=== PATIENT | female | born 1975 | race Caucasian/White ===

== ENCOUNTER 2021-06-23 19:01 | Emergency (ER) | payer MEDICAID, SELFPAY ==
--- NOTE | ~2021-06-23 | CT_ITS ---
EXAMINATION: CT ABDOMEN AND PELVIS WITHOUT IV CONTRAST CLINICAL INFORMATION: Diffuse abdominal pain, nausea. History of gastric bypass COMPARISON: Upper GI series 05/26/2017 TECHNIQUE: Multidetector volumetric imaging was performed from the superior aspect of the liver through the pubic symphysis. Sagittal and coronal reformatted images were obtained on the technologist's workstation. This CT examination was performed using dose optimization techniques as appropriate, variously including the following: *Automated exposure control *Adjustment of mA and/or kV according to patient size (this includes techniques or standardized protocols for targeted exams where dose is matched to indication/reason for exam; i.e. extremities or head) *Use of iterative reconstruction technique DLP: 892 mGy-cm FINDINGS: LUNG BASES: The visualized lung bases are unremarkable. LIVER, GALLBLADDER, AND BILIARY TREE: The liver is normal in size, shape, and attenuation. No focal hepatic lesion or biliary ductal dilatation is present. The gallbladder is unremarkable with no evidence of radiopaque gallstones, gallbladder wall thickening, or obvious pericholecystic inflammatory changes. PANCREAS: Unremarkable. SPLEEN: Unremarkable. ADRENAL GLANDS: Unremarkable. KIDNEYS AND URETERS: The kidneys are normal in size, shape, and attenuation. No hydronephrosis, hydroureter, or calculi seen. No perinephric stranding. BLADDER: Unremarkable. GASTROINTESTINAL TRACT: Oral contrast was administered. There is evidence of prior Clare-en-Y gastric bypass. Oral contrast is seen within the Clare limb and into the small bowel beyond the jejunojejunostomy without evidence of obstruction. Normal appendix. No evidence of colitis or diverticulitis. ABDOMINAL WALL: No significant hernia is appreciated. LYMPH NODES: Normal. VASCULAR: Normal caliber aorta. PELVIC VISCERA: The uterus and adnexa are unremarkable. OSSEOUS STRUCTURES: Vacuum disc phenomenon and degenerative disc disease at L4-5 and L5-S1. CT/CT abdomen pelvis wo con IMPRESSION: Clare-en-Y gastric bypass. No evidence of obstruction. No CT findings to explain abdominal pain.
[2021-06-23 19:10] VITALS: BP 118/75; PULSE 72; RESP 16; TEMP 36.2; O2SAT 98; BMI 37.5
[2021-06-23 21:05] LABS: Appearance Urine HAZY; Color Urine OTHER; Glucose Urine UA NEG (NEG); Leukocyte Esterase Urine 2+ (NEG); Nitrite Urine POS (NEG); Specific Gravity - Urine 1.025 (1.005-1.025); UACC Culture Trigger YES; Urine Blood 1+ (NEG); Urine Ketones 5 MG/DL (NEG); Urine Protein 1+ MG/DL (NEG-TRACE)
--- NOTE | 2021-06-23 21:06 | ED_ITS ---
HPI - Abdominal Pain General Chief Complaint: Abdominal Pain Stated Complaint: Abd Pain Time Seen by Provider: 06/23/21 20:59 Source: patient Mode of arrival: ambulatory Limitations: no limitations History of Present Illness HPI narrative: 45-year-old female here with complaints of left-sided abdominal pain and lower abdominal pain since this morning with some nausea but no vomiting. No diarrhea or constipation. No urinary symptoms. History of gastric bypass [address] Plata. Related Data Previous Rx's Medication Instructions Recorded nitrofurantoin 100 mg PO Q12H 5 Days #10 cap 06/24/21 monohydrate/macrocrystals 100 mg capsule (Macrobid) phenazopyridine 100 mg tablet 200 mg PO TID PRN #10 tab 06/24/21 (Pyridium) Allergies Allergy/AdvReac Type Severity Reaction Status Date / Time ENVIROMENTAL Allergy Intermediate HAYFEVER,NASAL Uncoded 07/09/20 15:25 CONGESTION Pt states no known allergy to Allergy Unknown Uncoded 05/17/18 00:00 Review of Systems Review of Systems Yes all other systems are reviewed and are negative Constitutional: Reports no additional constitutional complaints, Denies body ache(s), Denies chills, Denies fever(s), Denies headache(s) and Denies weakness Eyes: Reports no additional eye complaints and Denies change in vision Reports system reviewed and no additional complaints, except as documented, Denies dizziness, Denies headache(s), Denies nasal congestion, Denies nasal discharge and Denies neck pain Cardiovascular: Reports no additional cardiovascular complaints, Denies chest pain, Denies leg edema and Denies dyspnea Respiratory: Reports no additional respiratory complaints, Denies cough and Denies dyspnea Gastrointestinal: Reports no additional gastrointestinal complaints, Reports abdominal pain, Denies diarrhea, Reports nausea and Denies vomiting Genitourinary: Reports no additional female genitourinary complaints and Denies urinary incontinence Musculoskeletal: Reports no additional musculoskeletal complaints, Denies back pain, Denies arthralgias, Denies joint swelling, Denies neck pain, Denies numbness and Denies tingling Skin/Breast: Reports system reviewed and no additional complaints, except as docu and Denies rash Reports system reviewed and no additional complaints, except as documented, Denies Abnormal speech present, Denies dizziness, Denies headache(s), Denies num bness, Denies tingling and Denies weakness Physical Exam Vital Signs: Vital Signs: Last Vital Signs Temp 97.4 F 06/24/21 00:58 Pulse 68 06/24/21 00:58 Resp 16 06/24/21 00:58 BP 106/72 06/24/21 00:58 Pulse Ox 99 06/24/21 00:58 Body Mass Index 37.5 Const: General: cooperative, healthy appearing, comfortable and no acute distress Orientation/consciousness: patient oriented x3 Limitations: no limitations HENMT: Head: Yes normal to inspection Ears: hearing grossly normal bilaterally General nose exam: Normal external nose present Face and sinus: Yes normal facial exam Mouth: Normal oral and palatal mucosa present Throat: Yes posterior oropharynx normal Eyes: General: appearance normal, both eyes and all related structures Pupils: Equal, round and reactive pupils present Neck: Neck: Yes normal visual inspection Chest: Chest palpation & inspection: normal inspection of the chest Resp: Effort & Inspection: normal respiratory effort Auscultation: clear to auscultation bilaterally Cardio: Rate: regular rate Rhythm: regular rhythm Peripheral pulses: Peripheral pulses 2+ throughout GI: Inspection: Yes normal to inspection Palpation (GI): Soft to palpation and Tenderness to palpation present (GI) (Diffusely tender-no rebound or guarding) Auscultation: normal bowel sounds Back/Spine/Pelvis: Thoracic/Lumbar Spine: thoracic and lumbar spine normal to inspection Skin: General skin exam: no rashes or lesions noted Neuro: General: patient oriented x3, no focal motor deficits and normal sensation to monofilament Cranial nerves: Yes Equal, round and reactive pupils present Cognition (Neuro): normal cognition Speech: No Abnormal speech present Gait exam (Neuro): Normal gait present Motor exam (neuro): 5/5 motor strength present throughout Extrem: General: Yes normal to inspection Course Course Course Narrative: 45-year-old female with a past medical history of gastric bypass here with complaints of diffuse abdominal pain with nausea for 24 hours. On exam diffusely tender. Will check labs, UA. Will place PIV and give IV morphine and Zofran and reassessed 2199-labs show mild microcytic anemia unchanged from previous. WBC count 11.6. All other labs are all unremarkable. UA is consistent with a UTI. I spoke to the patient she is continuing to have pain after 1 dose of morphine. I will discuss with bariatrics if they believe that imaging is warranted. 2229-Spoke to Abbie SQUIRES from bariatrics. Recommended CT abdomen/pelvis with ORAL contrast. 0130-CT shows no acute finding. Patient is feeling improved. Tolerating p.o.. Will discharge home with course of antibiotics. Reviewed worrisome signs and symptoms of when to return to the emergency department. Comfortable discharge home. MDM - Abdominal Pain Medical Records Attestation: I reviewed the patient's medical records. Lab Data Attestation: I reviewed the patient's lab results. Result diagrams: 06/23/21 21:41 06/23/21 21:41 Labs: Lab Results 06/23/21 06/23/21 06/23/21 Range/Units 20:57 20:57 21:41 WBC 11.6 H (4.8-10.8) X10*3/uL RBC 3.85 L (4.20-5.50) X10*6/uL Hgb 9.5 L (12.0-16.0) g/dl Hct 30.5 L (37-47) % MCV 79.2 L (80-98) fL MCH 24.7 L (27.0-33.0) pg MCHC 31.1 (31.0-35.0) g/dl RDW 15.8 (11.0-16.0) % Plt Count 240 (160-400) X10*3/uL MPV 10.6 (9.4-12.3) fL Immature Gran % (Auto) 0.3 (0.0-0.4) % Neut % (Auto) 76.9 H (45-73) % Lymph % (Auto) 16.7 L (20-40) % Branch % (Auto) 5.2 (2-11) % Eos % (Auto) 0.6 (0-4) % Baso % (Auto) 0.3 (0-2) % Lymph # (Auto) 1.9 (1.2-4.9) X10*3/uL Branch # (Auto) 0.6 (0.1-1.2) X10*3/uL Eos # (Auto) 0.1 (0.0-0.4) X10*3/uL Baso # (Auto) 0.0 (0.0-0.2) X10*3/uL Abs Immat Gran (auto) 0.03 (0.00-0.03) X10*3/uL Absolute Neuts (auto) 8.9 H (2.0-8.3) X10*3/uL Absolute Nucleated RBC 0.000 (0.0-0.012) X10*3/uL Nucleated RBC % (auto) 0.0 (0.0-0.2) /100WBC Sodium (135-145) mmol/L Potassium (3.3-5.1) mmol/L Chloride (96-108) mmol/L Carbon Dioxide (22-29) mmol/L Anion Gap (12-20) BUN (9-16) mg/dL Creatinine (0.5-1.4) mg/dL Estim Creat Clear Calc Estimated GFR Random Glucose (60-115) mg/dL Calcium (8.4-10.2) mg/dL Total Bilirubin (0.0-1.0) mg/dL Direct Bilirubin (0.0-0.5) mg/dL AST (5-31) U/L ALT (0-31) U/L Alkaline Phosphatase (39-117) U/L Total Protein (6.5-8.0) g/dL Albumin (3.5-5.0) g/dL Lipase (8-78) U/L Urine Color OTHER Urine Appearance HAZY Urine pH 7.0 (5.0-8.0) Ur Specific [place] 1.025 (1.005-1.025) Urine Protein 1+ H (NEG-TRACE) MG/DL Urine Glucose (UA) NEG (NEG) MG/DL Urine Ketones 5 (NEG) MG/DL Urine Blood 1+ H (NEG) Urine Nitrite POS H (NEG) Ur Leukocyte Esterase 2+ H (NEG) Urine RBC 0-2 (0) /HPF Urine WBC 15-29 H (0-4) /HPF Ur Squamous Epith Cells 2+ /LPF Urine Bacteria 2+ /LPF Urine Test NEGATIVE (NEGATIVE) 06/23/21 Range/Units 21:41 WBC (4.8-10.8) X10*3/uL RBC (4.20-5.50) X10*6/uL Hgb (12.0-16.0) g/dl Hct (37-47) % MCV (80-98) fL MCH (27.0-33.0) pg MCHC (31.0-35.0) g/dl RDW (11.0-16.0) % Plt Count (160-400) X10*3/uL MPV (9.4-12.3) fL Immature Gran % (Auto) (0.0-0.4) % Neut % (Auto) (45-73) % Lymph % (Auto) (20-40) % Branch % (Auto) (2-11) % Eos % (Auto) (0-4) % Baso % (Auto) (0-2) % Lymph # (Auto) (1.2-4.9) X10*3/uL Branch # (Auto) (0.1-1.2) X10*3/uL Eos # (Auto) (0.0-0.4) X10*3/uL Baso # (Auto) (0.0-0.2) X10*3/uL Abs Immat Gran (auto) (0.00-0.03) X10*3/uL Absolute Neuts (auto) (2.0-8.3) X10*3/uL Absolute Nucleated RBC (0.0-0.012) X10*3/uL Nucleated RBC % (auto) (0.0-0.2) /100WBC Sodium 139 (135-145) mmol/L Potassium 4.1 (3.3-5.1) mmol/L Chloride 107 (96-108) mmol/L Carbon Dioxide 24 (22-29) mmol/L Anion Gap 12 (12-20) BUN 8 L (9-16) mg/dL Creatinine 0.79 (0.5-1.4) mg/dL Estim Creat Clear Calc 127.1 Estimated GFR > 60 Random Glucose 89 (60-115) mg/dL Calcium 9.1 (8.4-10.2) mg/dL Total Bilirubin 0.3 (0.0-1.0) mg/dL Direct Bilirubin < 0.2 (0.0-0.5) mg/dL AST 18 (5-31) U/L ALT 16 (0-31) U/L Alkaline Phosphatase 49 (39-117) U/L Total Protein 6.5 (6.5-8.0) g/dL Albumin 3.6 (3.5-5.0) g/dL Lipase 45 (8-78) U/L Urine Color Urine Appearance Urine pH (5.0-8.0) Ur Specific [place] (1.005-1.025) Urine Protein (NEG-TRACE) MG/DL Urine Glucose (UA) (NEG) MG/DL Urine Ketones (NEG) MG/DL Urine Blood (NEG) Urine Nitrite (NEG) Ur Leukocyte Esterase (NEG) Urine RBC (0) /HPF Urine WBC (0-4) /HPF Ur Squamous Epith Cells /LPF Urine Bacteria /LPF Urine Test (NEGATIVE) Imaging Data CT scan - abdomen: Attestation: I personally reviewed and interpreted this imaging study as follows: Radiologist's impression: FINDINGS: LUNG BASES: The visualized lung bases are unremarkable.? LIVER, GALLBLADDER, AND BILIARY TREE: The liver is normal in size, shape, and attenuation. No focal hepatic lesion or biliary ductal dilatation is present. The gallbladder is unremarkable with no evidence of radiopaque gallstones, gallbladder wall thickening, or obvious pericholecystic inflammatory changes.? PANCREAS: Unremarkable.? SPLEEN: Unremarkable.? ADRENAL GLANDS: Unremarkable.? KIDNEYS AND URETERS: The kidneys are normal in size, shape, and attenuation. No hydronephrosis, hydroureter, or calculi seen. No perinephric stranding. ? BLADDER: Unremarkable.? GASTROINTESTINAL TRACT: Oral contrast was administered. There is evidence of prior Clare-en-Y gastric bypass. Oral contrast is seen within the Clare limb and into the small bowel beyond the jejunojejunostomy without evidence of obstruction. Normal appendix. No evidence of colitis or diverticulitis.? ABDOMINAL WALL: No significant hernia is appreciated.? LYMPH NODES: Normal. VASCULAR: Normal caliber aorta. PELVIC VISCERA: The uterus and adnexa are unremarkable.? OSSEOUS STRUCTURES: Vacuum disc phenomenon and degenerative disc disease at L4-5 and L5-S1.? CT/CT abdomen pelvis wo con IMPRESSION: Clare-en-Y gastric bypass. No evidence of obstruction. ? No CT findings to explain abdominal pain.? Discharge Plan Discharge Clinical Impression: UTI (urinary tract infection) Patient Disposition: Home, Self-Care Instructions: Urinary Tract Infection in Women (ED) Additional Instructions: Increase fluids, rest Prescriptions: New nitrofurantoin monohyd/m-cryst [Macrobid] 100 mg capsule 100 mg PO Q12H 5 Days Qty: 10 RF: 0 phenazopyridine [Pyridium] 100 mg tablet 200 mg PO TID PRN (Reason: pain) Qty: 10 RF: 0 Referrals: Rosbiel Burden MD [Primary Care Provider] - 2 days [facility] Past Medical History Attestation statement: The following information was validated with the patient. Source: old records reviewed and nursing notes reviewed Medical History Ovarian cyst Social History Social History Advance Directives: No Advance Directives Information Provided: No
[2021-06-23 21:13] LABS: UPreg QC Valid YES; Urine Pregnancy NEGATIVE (NEGATIVE)
[2021-06-23 21:20] LABS: Bacteria Urine 2+ /LPF; RBC Urine 0-2 /HPF (0); Squamous Epithelial Cell Urine 2+ /LPF
[2021-06-23] MEDS: ondansetron HCL 4 MG/2 ML VIAL IVPUSH (21:34)
[2021-06-23] MEDS: Morphine Sulfate 4 MG/ML CARTRIDGE IVPUSH (21:36)
[2021-06-23 21:45] LABS: MANUAL DIFF FLAG NO
[2021-06-23 21:51] LABS: Basophils Percent Auto 0.3 % (0-2); Eosinophils Absolute Auto 0.1 X10*3/uL (0.0-0.4); Eosinophils Percent Auto 0.6 % (0-4); Hematocrit 30.5 % (37-47); Hemoglobin 9.5 g/dl (12.0-16.0); Imm Gran Abs Auto 0.03 X10*3/uL (0.00-0.03); Imm Gran Pct Auto 0.3 % (0.0-0.4); Lymphocytes Absolute Auto 1.9 X10*3/uL (1.2-4.9); Lymphocytes Percent Auto 16.7 % (20-40); Mean Corpuscular HGB Conc 31.1 g/dl (31.0-35.0); Mean Corpuscular Hemoglobin 24.7 pg (27.0-33.0); Mean Corpuscular Volume 79.2 fL (80-98); Mean Platelet Volume 10.6 fL (9.4-12.3); Monocytes Absolute Auto 0.6 X10*3/uL (0.1-1.2); Monocytes Percent Auto 5.2 % (2-11); Neutrophils Absolute Auto 8.9 X10*3/uL (2.0-8.3); Neutrophils Percent Auto 76.9 % (45-73); Platelet Count 240 X10*3/uL (160-400); Red Blood Count 3.85 X10*6/uL (4.20-5.50); Red Cell Distribution Width 15.8 % (11.0-16.0); White Blood Count 11.6 X10*3/uL (4.8-10.8)
[2021-06-23 22:04] LABS: Alanine Aminotransferase 16 U/L (0-31); Albumin Level 3.6 g/dL (3.5-5.0); Alkaline Phosphatase 49 U/L (39-117); Anion Gap 12 (12-20); Aspartate Amino Transferase 18 U/L (5-31); Bilirubin Direct < 0.2 mg/dL (0.0-0.5); Bilirubin Total 0.3 mg/dL (0.0-1.0); Blood Urea Nitrogen 8 mg/dL (9-16); Calcium 9.1 mg/dL (8.4-10.2); Carbon Dioxide 24 mmol/L (22-29); Chloride 107 mmol/L (96-108); Creatinine Clr Calc Pharmacy 127.1; Estimated Glomerular Filt Rate > 60; Glucose Random 89 mg/dL (60-115); Lipase 45 U/L (8-78); Potassium 4.1 mmol/L (3.3-5.1); Sodium 139 mmol/L (135-145); Total Protein 6.5 g/dL (6.5-8.0)
[2021-06-23] MEDS: Diatrizoate Meglumine, Sodium 30 ML SOLUTION PO (22:37)
[2021-06-23] MEDS: Famotidine/PF 20 MG/2 ML VIAL IVPUSH (22:53)
[2021-06-24] MEDS: Morphine Sulfate 4 MG/ML CARTRIDGE IVPUSH (00:18)
[2021-06-24 00:58] VITALS: BP 106/72; PULSE 68; RESP 16; TEMP 36.3; O2SAT 99
== END 2021-06-24 01:36 | disposition home or self-care (01) ==
PROVIDERS: Nurse Practitioner Family; Emergency Provider Internal Medicine; PCP Family Medicine
DX: N39.0 Urinary tract infection, site not specified (principal); Z98.84 Bariatric surgery status
CPT/HCPCS: 36415; 74176; 80048; 80076; 81001; 81025; 83690; 85025; 87086; 96374; 96375; 96376; 99284; J2270; J2405

== ENCOUNTER 2021-07-02 09:04 | Outpatient (REF) | payer MEDICAID, SELFPAY ==
[2021-07-02 11:42] LABS: Estimated Average Glucose 108 mg/dL; Hemoglobin A1c % 5.4 %
[2021-07-02 12:03] LABS: Cholesterol 170 mg/dL; HDL Cholesterol 41 mg/dL; LDL Cholesterol Calculated 106 mg/dl; Triglycerides 119 mg/dL
[2021-07-02 12:17] LABS: Vitamin D 25-OH Total 10.8 ng/mL (>30)
[2021-07-02 12:27] LABS: Folate 8.8 ng/mL (> or = 4.0); Vitamin B12 1033 pg/mL (200-900)
[2021-07-05 18:42] LABS: Insulin Level Total 11.4 uIU/mL
[2021-07-06 06:02] LABS: Zinc 67 mcg/dL (60-130)
[2021-07-07 13:00] LABS: Vitamin B1 12 nmol/L (8-30)
[2021-07-08 16:57] LABS: Vitamin A 29 mcg/dL (38-98)
== END 2021-07-02 09:05 | disposition home or self-care (01) ==
LOC: HO.LAB 09:04
PROVIDERS: PCP Family Medicine; Referring Provider Family Medicine; Visit Provider Physician Assistant
DX: E66.01 Morbid (severe) obesity due to excess calories (principal); Z68.41 Body mass index [BMI] 40.0-44.9, adult; Z98.84 Bariatric surgery status; Z71.3 Dietary counseling and surveillance
CPT/HCPCS: 36415; 80061; 82306; 82607; 82746; 83036; 83525; 84425; 84443; 84590; 84630

== ENCOUNTER → 2021-07-23 09:32 | Outpatient (BNVA) | payer MEDICAID, SELFPAY | PROVIDERS: PCP Family Medicine; Referring Provider Family Medicine; Visit Provider Dietitian, Registered | DX: E66.01 Morbid (severe) obesity due to excess calories (principal); Z68.41 Body mass index [BMI] 40.0-44.9, adult | CPT/HCPCS: 97803 ==

== ENCOUNTER → 2021-08-11 10:40 | Outpatient (BNVA) | payer MEDICAID, SELFPAY | PROVIDERS: PCP Family Medicine; Referring Provider Family Medicine; Visit Provider Physician Assistant Surgical | DX: E66.01 Morbid (severe) obesity due to excess calories (principal); D50.9 Iron deficiency anemia, unspecified | CPT/HCPCS: 99212 ==

== ENCOUNTER 2022-01-24 11:17 | Outpatient (REF) | payer BC, MEDICAID, SELFPAY ==
[2022-01-30 22:36] LABS: Vitamin A 22 mcg/dL (38-98)
== END 2022-01-24 11:18 | disposition home or self-care (01) ==
LOC: HO.LAB 11:17
PROVIDERS: Physician Assistant; Absent Provider Internal Medicine Medical Oncology; PCP Family Medicine; Referring Provider Family Medicine; Visit Provider Nurse Practitioner Family
DX: Z01.419 Encounter for gynecological examination (general) (routine) without abnormal findings (principal); D50.9 Iron deficiency anemia, unspecified; Z98.84 Bariatric surgery status
CPT/HCPCS: 36415; 84590; 99202

== ENCOUNTER 2023-08-01 11:49 | Outpatient (REF) | payer MEDICAID, SELFPAY ==
--- NOTE | ~2023-08-01 | MM_ITS ---
EXAMINATION: MM SCREENING DIGITAL BREAST TOMOSYNTHESIS, BILATERAL CLINICAL INFORMATION: Screening. Asymptomatic. COMPARISON: Mammography: This is a baseline study. TECHNIQUE: Digital breast tomosynthesis is performed in both the craniocaudal and mediolateral oblique views along with computer-aided detection (CAD). Synthesized 2D images are generated from the tomosynthesis. FINDINGS: There are scattered areas of fibroglandular density (ACR BI-RADS breast composition Category b). There are no significant masses, abnormal calcifications, or other abnormalities. MM/MM tomosynthesis screening BI IMPRESSION: No mammographic evidence of malignancy. ASSESSMENT: BI-RADS BI-RADS 1 - Negative RECOMMENDATION: Routine annual mammography screening. 1 year F/U This examination should not preclude the clinical evaluation of a suspicious palpable abnormality. This patient's information was entered into a reminder system with a target due date for their next mammogram.
== END 2023-08-01 11:50 | disposition home or self-care (01) ==
LOC: HO.MAMMO 11:49
PROVIDERS: PCP Family Medicine; Visit Provider Family Medicine
DX: Z12.31 Encounter for screening mammogram for malignant neoplasm of breast (principal)
CPT/HCPCS: 77063; 77067

== ENCOUNTER → 2023-08-01 12:00 | Outpatient (BNV) | payer SELFPAY | PROVIDERS: PCP Family Medicine; Visit Provider Radiology Diagnostic Radiology | DX: Z12.31 Encounter for screening mammogram for malignant neoplasm of breast (principal) | CPT/HCPCS: 77063; 77067 ==

== ENCOUNTER 2023-08-16 | Outpatient (REF) | payer MEDICAID, SELFPAY ==
[2023-08-18 17:42] LABS: C. trachomatis RNA TMA NOT DETECTED (NOT DETECTED); N. gonorrhoeae RNA TMA NOT DETECTED (NOT DETECTED)
[2023-08-18 21:13] LABS: HPV mRNA E6/E7 rflx Not Detected (Not Detected)
== END 2023-08-16 00:01 | disposition home or self-care (01) ==
LOC: HO.HHCLNP
PROVIDERS: Visit Provider Family Medicine
DX: Z12.4 Encounter for screening for malignant neoplasm of cervix (principal); Z11.51 Encounter for screening for human papillomavirus (HPV)
CPT/HCPCS: 36415; 87491; 87591; 87624; 88142

== ENCOUNTER 2023-11-10 08:51 | Outpatient (REF) | payer MEDICAID, SELFPAY ==
--- NOTE | ~2023-11-10 | US_ITS ---
EXAMINATION: MM DIAGNOSTIC DIGITAL BREAST TOMOSYNTHESIS, RIGHT US BREAST LIMITED, RIGHT MAMMOGRAPHY: CLINICAL INFORMATION: Palpable abnormality right lower axilla felt by physician, likely lymph node. Painful to patient. COMPARISON: Mammography: Baseline mammography 08/01/2023. TECHNIQUE: Digital right breast tomosynthesis is performed in the following views: full-field right mediolateral 3-D view was obtained, as well as a spot compression 3-D right CC and ML view. Computer-aided diagnosis was used for this study. FINDINGS: There are scattered areas of fibroglandular density (ACR BI-RADS breast composition Category b). Within the right axilla, there is a lobular mass which correlates with the focus of palpable concern marked with a BB by the technologist, consistent with a low right axillary lymph node. This does not appear abnormal on mammography but will be interrogated by sonography. It appears essentially unchanged from 08/01/2023 exam. Otherwise, there is a stable circumscribed small nodule in the slightly upper outer right breast, unchanged from patient's baseline exam. Parenchymal pattern is stable from prior exam. No suspicious masses, grouped calcifications, or areas of architectural distortion in the right breast. No skin changes noted. ULTRASOUND: CLINICAL INFORMATION: As above. COMPARISON: None TECHNIQUE: Targeted sonographic evaluation right lower axilla was performed using a high frequency linear transducer. Selected archived documentation. FINDINGS: RIGHT BREAST: There is a benign-appearing right lower axillary lymph node which correlates with the palpable focus of concern. This demonstrates a generous fatty hilum, and thin, 1 mm cortex. There is a normal vascular pedicle. There are no suspicious features. It it has a normal morphology. This is benign. US/US breast RT limited mamm only IMPRESSION: There are no findings suspicious for malignancy in the right breast. Palpable focus in the low axilla correlates with a normal-appearing benign low axillary lymph node. Recommend the patient return to routine annual screening mammography to include both breasts. Patient appears to be due in July 2024. OVERALL ASSESSMENT: Mammography: BI-RADS 2 - Benign Findings Ultrasound: BI-RADS 2 - Benign Findings RECOMMENDATION: 1 year F/U Results were provided to the patient at time of visit by the technologist. This patient's information was entered into a reminder system with a target due date for their next mammogram.
== END 2023-11-10 08:52 | disposition home or self-care (01) ==
LOC: HO.MAMMO 08:51
PROVIDERS: PCP Family Medicine; Visit Provider Internal Medicine
DX: N63.15 Unspecified lump in the right breast, overlapping quadrants (principal); N64.4 Mastodynia
CPT/HCPCS: 76642; 77061; 77065

== ENCOUNTER → 2023-11-10 09:30 | Outpatient (BNV) | payer MEDICAID, SELFPAY | PROVIDERS: PCP Family Medicine; Visit Provider Radiology Diagnostic Radiology | DX: N63.11 Unspecified lump in the right breast, upper outer quadrant (principal) | CPT/HCPCS: 76642; 77061; 77065 ==

== ENCOUNTER 2023-11-28 11:54 | Outpatient (AMB) | payer OTHER, SELFPAY ==
--- NOTE | 2023-11-28 11:59 | A.OFFVIS_ITS ---
Intake Vital Signs 11/28/23 12:03 Height 5 ft 10 in Weight 272 lb BMI 39.0 BP 86/43 L Blood Pressure Location Lt brachial Position Sitting Pulse 69 Intake Visit Reasons: Colonoscopy Screening Intake Note: Follow up for 1st pre Colonoscopy screening. Patient denies any GI issues. 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 Screen for colon cancer Patient denies any GI, cardiac or respiratory symptoms.? History of constipation before her gastric bypass surgery. Patient reports that now that she does not eat much she does not get constipated anymore. However patient is on iron supplements her and her stools are hard. Will send her script for docusate sodium. Occasional right upper quadrant and metal abdomen cramping postprandially usually after meal not alter milk shakes. Most likely cramping related to gas trapping. Denies any issues with anesthesia in the past.? Denies any history of sleep apnea.? No history infectious diseases in the past or present.? Not on any anticoagulation therapy.? No family or personal history of colon cancer or polyps.? Patient denies melena, hematochezia, unintentional weight loss.? Discussed at length the pre-procedure,? prep, diet & medications as well as what to expect prior, during and after the procedure.?? Stressed the importance of good bowel prep. ?Recommended the use of Vaseline or Calmoseptine OTC & baby wipes with bowel movements to promote comfort.? ?Patient verbalizes understanding and agrees to plan of care.? She was given the opportunity to ask questions and all questions answered.? We will see her after the procedure.? Plan Medications New bisacodyl (Dulcolax (bisacodyl)) take 2 tabs at noon the day before your colonoscopy 10 mg (2 x 5 mg) PO ONCE 1 day 2 tabs 0RF Z12.11 docusate sodium 100 mg PO BEDTIME 30 caps 3RF K59.00 polyethylene glycol 3350 (Miralax) As directed by gastroenterology department at [facility] 238 grams PO ONCE 238 grams 0RF Z12.11 TODAY'S VISIT: Patient is here today to discuss going for colonoscopy. This will be her screening colonoscopy as she turned 46 last year. Patient was sent by me for colonoscopy couple years ago for anemia. Patient never went for colonoscopy. Patient will schedule twice, however patient reports that she was not aware that she was sent for the procedure. Patient denies any melena, hematochezia, unintentional weight loss or ribbon like stools. Denies any issues with anesthesia in the past. No history of sleep apnea. Currently on iron daily, however patient reports that she takes it only couple times a week as she is very constipated when taking it. Patient is not take any anticoagulation medication. [facility]LY [facility] Medical History Ovarian cyst Surgical History History of back surgery Hx of section Hx of gastric bypass Family History Mother Diabetes Hypertension Father No problems noted. Sister No problems noted. Brother Asthma Brother No problems noted. Daughter No problems noted. Son No problems noted. Son No problems noted. Daughter No problems noted. Social History (Updated 11/28/23 @ 12:00 by Ping Alegria) Household Members: Family Alcohol intake: current Alcohol intake frequency: holidays/special occasions only Patient Tobacco Use Status: Former Tobacco user Review of Systems Const Denies weight gain and Denies weight loss ENT Reports no additional complaints, Denies dysphagia and Denies odynophagia Card Reports no additional complaints Resp Reports no additional complaints GI Denies abdominal pain, Denies belching, Denies melena, Denies bloating, Denies change in bowel habits, Denies dysphagia, Denies excessive flatus, Denies dyspepsia, Denies heartburn, Denies diarrhea, Denies loose stools, Denies nausea, Denies odynophagia and Denies vomiting Musc Reports no additional complaints Neuro Reports no additional complaints Psych Reports no additional complaints Endo Reports no additional complaints Physical Exam Vital Signs: Last Vital Signs Pulse 69 11/28/23 12:03 BP 86/43 L 11/28/23 12:03 BMI result Body Mass Index 39.0 Const General: healthy appearing, no acute distress and well developed Nutritional Appearance: obese Orientation/consciousness: patient oriented x3 Resp Effort & Inspection: normal respiratory effort, able to speak in complete sentences, no tracheal deviation and symmetric chest movement Auscultation: clear to auscultation bilaterally Cardio Rate: regular rate GI Inspection: Yes normal to inspection, No distended and Yes obesity Palpation (GI): Soft to palpation, not firm, nontender and No hepatosplenomegaly present Auscultation: normal bowel sounds General: Yes no CVA tenderness Back/Spine/Pelvis Back: no CVA tenderness Skin General skin exam: elasticity normal, turgor normal and dry skin Neuro General: patient oriented x3 Psych Appearance: grossly normal Mental Status: mental status grossly normal Assessment & Plan Assessment & Plan (1) Hx of gastric bypass: Code(s): Z98.84 - Bariatric surgery status (2) Iron deficiency anemia: Code(s): D50.9 - Iron deficiency anemia, unspecified Qualifiers: Iron deficiency anemia type: other iron deficiency Qualified Code(s): D50.8 - Other iron deficiency anemias (3) Screen for colon cancer: Code(s): Z12.11 - Encounter for screening for malignant neoplasm of colon Plan Patient denies any issues with anesthesia in the past. No history of sleep apnea. Not on any anticoagulation medication. What to expect before during and after procedure discussed with patient. The importance of clear liquid diet and good bowel prep stressed with patient. I will see patient after the procedure, sooner on as needed basis. Patient is agreeable to this plan and verbalizes understanding of instructions. She was given the opportunity to ask questions and all questions answered. Thank you for allowing me to participate in her care Orders: Orders Comprehensive Met. Panel Today D50.9 - Iron deficiency anemia, unspecified, Z98.84 - Bariatric surgery status Complete Blood Count no Diff Today D50.9 - Iron deficiency anemia, unspecified, Z98.84 - Bariatric surgery status Medications: New bisacodyl (Dulcolax (bisacodyl)) take 4 tabs at noon the day before your colonoscopy 20 mg (4 x 5 mg) PO ONCE 4 tabs 0RF 1 day Z12.11 - Encounter for screening for malignant neoplasm of colon Refilled polyethylene glycol 3350 (Miralax) take orally as directed prior to colonoscopy 238 grams PO ONCE 1 day 238 grams 0RF Discontinued bisacodyl (Dulcolax (bisacodyl)) take 2 tabs at noon the day before your colonoscopy Discontinued Reason: Duplicate 10 mg (2 x 5 mg) PO ONCE 1 day 2 tabs 0RF Z12.11 - Encounter for screening for malignant neoplasm of colon polyethylene glycol 3350 (Miralax) As directed by gastroenterology department at [facility] Discontinued Reason: Duplicate 238 grams PO ONCE 238 grams 0RF Z12.11 - Encounter for screening for malignant neoplasm of colon bisacodyl (Dulcolax (bisacodyl)) take orally as directed prior to colonoscopy Discontinued Reason: Duplicate 10 mg (2 x 5 mg) PO ONCE 1 day 2 tabs 0RF Coding Level of Care Code Est Pt Level 3 (74126) Diagnoses Hx of gastric bypass Z98.84 Other iron deficiency anemia D50.8 Iron deficiency anemia type: other iron deficiency Screen for colon cancer Z12.11 Time Spent (min) 35 Comment 20 minutes spent with patient and additional 15 minutes spent reviewing her records
[2023-11-28 12:03] VITALS: BP 86/43; PULSE 69; BMI 39.0
== END 2023-11-28 12:45 | disposition home or self-care (01) ==
PROVIDERS: PCP Family Medicine; Visit Provider Nurse Practitioner Family
DX: Z98.84 Bariatric surgery status (principal); D50.8 Other iron deficiency anemias; Z12.11 Encounter for screening for malignant neoplasm of colon
CPT/HCPCS: 99213

== ENCOUNTER → 2023-11-28 11:54 | Outpatient (BNVA) | payer OTHER, SELFPAY | PROVIDERS: PCP Family Medicine; Visit Provider Nurse Practitioner Family | DX: Z12.11 Encounter for screening for malignant neoplasm of colon (principal); D50.9 Iron deficiency anemia, unspecified; Z98.84 Bariatric surgery status | CPT/HCPCS: 99212 ==

== ENCOUNTER 2024-06-26 10:21 | Outpatient (REF) | payer OTHER, SELFPAY ==
[2024-06-26 11:02] LABS: MANUAL DIFF FLAG NO
[2024-06-26 11:21] LABS: Basophils Absolute Auto 0.1 X10*3/uL (0.0-0.2); Basophils Percent Auto 1.4 % (0-2); Eosinophils Absolute Auto 0.1 X10*3/uL (0.0-0.4); Eosinophils Percent Auto 1.6 % (0-4); Hematocrit 32.2 % (37.0-47.0); Imm Gran Abs Auto 0.01 X10*3/uL (0.00-0.03); Imm Gran Pct Auto 0.2 % (0.0-0.4); Lymphocytes Percent Auto 31.8 % (20-40); Mean Corpuscular HGB Conc 31.1 g/dl (31.0-35.0); Mean Corpuscular Hemoglobin 24.9 pg (27.0-33.0); Mean Corpuscular Volume 80.3 fL (80.0-98.0); Mean Platelet Volume 11.3 fL (9.4-12.3); Monocytes Absolute Auto 0.5 X10*3/uL (0.1-1.2); Neutrophils Absolute Auto 3.6 x10*3/uL (2.0-8.3); Platelet Count 275 X10*3/uL (160-400); Red Blood Count 4.01 X10*6/uL (4.20-5.50); Red Cell Distribution Width 15.9 % (11.0-16.0); White Blood Count 6.2 X10*3/uL (4.8-10.8)
[2024-06-26 11:57] LABS: Alanine Aminotransferase 15 U/L (0-31); Albumin Level 3.6 g/dL (3.5-5.0); Alkaline Phosphatase 58 U/L (39-117); Anion Gap 11 (12-20); Aspartate Amino Transferase 18 U/L (5-31); Bilirubin Direct 0.1 mg/dL (0.0-0.5); Bilirubin Total 0.3 mg/dL (0.0-1.0); Blood Urea Nitrogen 12 mg/dL (9-16); Calcium 9.3 mg/dL (8.4-10.2); Carbon Dioxide 25 mmol/L (22-29); Chloride 108 mmol/L (96-108); Cholesterol 173 mg/dL (<200); Estimated Glomerular Filt Rate > 60; Glucose Random 89 mg/dL (60-115); HDL Cholesterol 46 mg/dL (>40); Iron 26 mcg/dL (30-160); LDL Cholesterol Calculated 106 mg/dL (<100); Percent Iron Saturation 8 % (15-50); Potassium 4.4 mmol/L (3.3-5.1); Sodium 140 mmol/L (135-145); Total Iron Binding Capacity 343 mcg/dL (228-428); Total Protein 6.8 g/dL (6.5-8.0); Triglycerides 105 mg/dL (<150); Unsaturated Iron Binding 317 ug/dL
[2024-06-26 12:15] LABS: Syphilis Screen Nonreactive (Nonreactive)
[2024-06-26 12:16] LABS: HIV AB/AG Nonreactive (Nonreactive); HIV Num 1 0.05 S/CO (0.00-0.99); Vitamin B12 619 pg/mL (200-900); ~HepC Num1 0.26 S/CO (0.00-0.79); ~Hepatitis C Antibody Nonreactive (Nonreactive)
[2024-06-26 12:17] LABS: Ferritin 3 ng/mL (10-250); TSH reflex Free T4 1.27 uIU/mL (0.32-4.0); Vitamin D 25-OH Total 12.9 ng/mL (>30)
== END 2024-06-26 10:22 | disposition home or self-care (01) ==
LOC: HO.HHCL 10:21
PROVIDERS: Visit Provider Family Medicine
DX: E66.01 Morbid (severe) obesity due to excess calories (principal); D50.9 Iron deficiency anemia, unspecified; D50.8 Other iron deficiency anemias; Z11.3 Encounter for screening for infections with a predominantly sexual mode of transmission; Z98.84 Bariatric surgery status; Z68.41 Body mass index [BMI] 40.0-44.9, adult
CPT/HCPCS: 36415; 80048; 80061; 80076; 82306; 82607; 82728; 83540; 84443; 85025; 86780; 86803; 87389

== ENCOUNTER 2024-08-14 19:35 | Emergency (ER) | payer MEDICAID, SELFPAY ==
--- NOTE | ~2024-08-14 | CT_ITS ---
EXAMINATION: CT HEAD WITHOUT CONTRAST CLINICAL INFORMATION: Trauma weight fall on head. COMPARISON: None available. TECHNIQUE: Contiguous axial imaging was performed from the skull base to vertex without intravenous administration of contrast. This CT examination was performed using dose optimization techniques as appropriate, variously including the following: *Automated exposure control *Adjustment of mA and/or kV according to patient size (this includes techniques or standardized protocols for targeted exams where dose is matched to indication/reason for exam; i.e. extremities or head) *Use of iterative reconstruction technique DLP: 703 mGy-cm FINDINGS: Soft tissues: Focal area of soft tissue increased density in the right posterior parietal region extending over 3 cm anterior to posterior and 0.5 cm in depth and 3.5 cm craniocaudal compatible with a scalp contusion. No soft tissue gas or air. No underlying fracture. Bone/calvarium: Normal. No fracture. Sinuses: Clear. Mastoid air cells: Clear. No intracranial mass hemorrhage or cerebral edema. Ventricles and basal cisterns normal. No extra-axial fluid collections. CT/CT head/brain wo IV con IMPRESSION: 1. No acute intracranial pathology. 2. Scalp contusion. Electronically signed by: Vasile Quinteros MD 08/14/2024 09:08 PM EDT
--- NOTE | ~2024-08-14 | CT_ITS ---
EXAMINATION: CT CERVICAL SPINE WITHOUT CONTRAST CLINICAL INFORMATION: Trauma fall. Head injury. COMPARISON: None available. TECHNIQUE: CT scan of the cervical spine was performed reconstruction imaging performed at the acquisition workstation. This CT examination was performed using dose optimization techniques as appropriate, variously including the following: *Automated exposure control *Adjustment of mA and/or kV according to patient size (this includes techniques or standardized protocols for targeted exams where dose is matched to indication/reason for exam; i.e. extremities or head) *Use of iterative reconstruction technique DLP: 682 mGy-cm FINDINGS: Vertebral bodies normally aligned with normal height. Multilevel degenerative disc changes manifested by endplate osteophytes and variable mild disc space narrowing extending from C3-C4 through T1-T2 No fracture. No dislocation Surrounding soft tissues normal. CT/CT cervical spine wo IV con IMPRESSION: 1. Multilevel spondylosis of the cervical spine. 2. No acute abnormality. Fleischner guidelines were followed. Electronically signed by: Vasile Quinteros MD 08/14/2024 09:15 PM EDT
[2024-08-14 20:01] VITALS: BP 113/52; PULSE 75; RESP 22; TEMP 36.3; O2SAT 100; BMI 38.9
--- NOTE | 2024-08-14 20:01 | ED_ITS ---
HPI - Head Injury General Chief complaint: Head Injury Stated complaint: head inj Time Seen by Provider: 08/14/24 21:52 History of Present Illness ED Provider: Mari HPI Narrative: 48-year-old female presenting for head injury. Patient was with her knees when she noticed that the pantry with the microwave began falling. In an attempt to prevent her knees from getting hit patient looped in front of the pantry which proceeded to fall and hit her on her head. There was no LOC however since the incident patient has been experiencing severe head pain and has had nausea with a few episodes of nonbloody nonbilious emesis. She also endorses mild right-robert ed neck pain however denies chest pain, difficulty breathing, abdominal pain. Related Data Previous Rx's ?Medication ?Instructions ?Recorded ferrous sulfate 324 mg (65 mg 324 mg PO DAILY #30 tabs 07/02/21 iron) tablet,delayed release cholecalciferol (vitamin D3) 50 50 mcg PO DAILY #30 caps 07/06/21 mcg (2,000 unit) capsule vitamin A palmitate 3,000 mcg 10,000 unit PO DAILY #30 tabs 01/31/22 (10,000 unit) tablet docusate sodium 100 mg capsule 100 mg PO BEDTIME #30 caps 07/13/22 (DOK) polyethylene glycol 3350 17 238 g PO ONCE 1 day #238 grams 11/28/23 gram/dose oral powder (Miralax) bisacodyl 5 mg tablet,delayed 20 mg (4 x 5 mg) PO ONCE 1 day #4 11/29/23 release (Dulcolax (bisacodyl)) tabs bisacodyl 5 mg tablet,delayed 20 mg (4 x 5 mg) PO ONCE 1 day #4 03/05/24 release (Dulcolax (bisacodyl)) tabs polyethylene glycol 3350 17 238 g PO ONCE 1 day #238 grams 03/05/24 gram/dose oral powder (Miralax) Allergies Allergy/AdvReac Type Severity Reaction Status Date / Time ENVIROMENTAL Allergy Intermediate HAYFEVER,NASAL Uncoded 08/14/24 20:01 CONGESTION Review of Systems Review of Systems: Patient endorses head pain, neck pain, nausea, vomiting and photophobia Yes all other systems are reviewed and are negative PMFSH Past Medical History Medical History Ovarian cyst Surgical History History of back surgery Hx of section Hx of gastric bypass Family History Family History Mother Diabetes Hypertension Father No problems noted. Sister No problems noted. Brother Asthma Brother No problems noted. Daughter No problems noted. Son No problems noted. Son No problems noted. Daughter No problems noted. Social History Social History (Updated 11/28/23 @ 12:00 by Ping Alegria) Household Members: Family Alcohol intake: current Alcohol intake frequency: holidays/special occasions only Patient Tobacco Use Status: Former Tobacco user Advance Directives: No Advance Directives Information Provided: Yes Do you have a plan to hurt others: No Plan Physical Exam Vital Signs: Vital Signs: Last Vital Signs Temp 98.0 F 08/14/24 23:36 Pulse 77 08/14/24 23:36 Resp 16 08/14/24 23:36 BP 94/45 L 08/14/24 23:36 Pulse Ox 96 08/14/24 23:36 O2 Del Method Room Air 08/14/24 23:36 BMI result Body Mass Index 38.9 Well-appearing female Right parietal contusion; no midline C-spine tenderness; no lacerations; right- sided paraspinal C-spine tenderness to palpation Lungs clear to auscultation bilaterally; normal S1-S2 regular rate and rhythm No focal neurologic deficits appreciated; pupils equal and reactive Course Course Course Narrative: This is an RME: Additional HPI, ROS, PE not included below will be deferred to primary provider. RME assessment and note performed by: Cristina Lizama PA-C This is a [id number]-female who presents to the ER with complaints of head injury. Cabinet with microwave fell on top of right side of head. Tenderness palpation along the right scalp, patient photophobic. She has been vomiting since. She was brought immediately back to CT scan and a room for further evaluation. She is speaking in full sentences. Medications Administered Discontinued Medications Generic Name Dose Route Start Last Admin Trade Name Freq PRN Reason Stop Dose Admin Acetaminophen 975 mg 08/14/24 22:09 08/14/24 22:23 Acetaminophen 325 Mg Tablet PO 08/14/24 22:10 975 mg ONCE ONE Administration Ketorolac Tromethamine 15 mg 08/14/24 22:15 08/14/24 22:22 Ketorolac Tromethamine 15 Mg/Ml Vial IM 08/14/24 22:16 15 mg ONCE ONE Administration Prochlorperazine Maleate 10 mg 08/14/24 22:09 08/14/24 22:23 Prochlorperazine Maleate 5 Mg Tablet PO 08/14/24 22:10 10 mg ONCE ONE Administration Medical Decision Making Medical Decision Making [facility] Narrative: This is a 48-year-old presenting for head injury after being struck by a pantry with microwave. I am concerned for the following; concussion, soft tissue trauma -lower suspicion for head bleed/cervical fracture however will obtain appropriate imaging -imaging studies ordered in triage -I do not appreciate head bleed on patient's CT head and neck nor did I appreciate any cervical spine injury and the radiology interpretations for both head and neck imaging were negative other than scalp contusion -patient is in pain however overall well-appearing. Analgesics were ordered and I gave her home care instructions and return precautions. Patient is walking with steady gait Differential Diagnosis Differential Diagnoses: The differential diagnosis associated with the presentation includes Concussion, soft tissue trauma Discharge Plan Discharge Clinical Impression: Head pain Patient Disposition: Home, Self-Care Instructions: Concussion (ED) Additional Instructions: You can take Tylenol and/or ibuprofen for your head pain. You can also apply cold packs to assist with pain and swelling Please follow up with the primary care provider in the next 24-48 hours Please review the concussion information listed in your discharge paperwork If you develop any new or worsening symptoms please return to the emergency department Prescriptions: No Action cholecalciferol (vitamin D3) 50 mcg (2,000 unit) capsule 50 mcg PO DAILY Qty: 30 6RF vitamin A palmitate 10,000 unit tablet 10,000 unit PO DAILY Qty: 30 8RF docusate sodium [DOK] 100 mg capsule 100 mg PO BEDTIME Qty: 30 2RF polyethylene glycol 3350 [Miralax] 17 gram/dose powder 238 g PO ONCE 1 Days Qty: 238 0RF Rx Instructions: Take as directed by mouth the day before your procedure. bisacodyl [Dulcolax (bisacodyl)] 5 mg tablet,delayed release (DR/EC) 20 mg PO ONCE 1 Days Qty: 4 0RF Rx Instructions: take at noon the day before colonoscopy ferrous sulfate 324 mg (65 mg iron) tablet,delayed release (DR/EC) 324 mg PO DAILY Qty: 30 0RF Rx Instructions: Don't take with dairy products. Take 500 mg vitamin C with tabs. polyethylene glycol 3350 [Miralax] 17 gram/dose powder 238 g PO ONCE 1 Days Qty: 238 0RF Rx Instructions: take orally as directed prior to colonoscopy bisacodyl [Dulcolax (bisacodyl)] 5 mg tablet,delayed release (DR/EC) 20 mg PO ONCE 1 Days Qty: 4 0RF Rx Instructions: take 4 tabs at noon the day before your colonoscopy Interventions: ED Discharge Assessment Last Done: 08/14/24 23:36 Discharge Date/Time: 08/14/24 23:43 Print Language: [place]
[2024-08-14 21:33] VITALS: BP 99/51; PULSE 65; RESP 16; TEMP 36.7; O2SAT 98
[2024-08-14] MEDS: Ketorolac Tromethamine 15 MG/ML VIAL IM (22:22)
[2024-08-14] MEDS: Prochlorperazine Maleate 5 MG TABLET 10 MG PO (22:23)
[2024-08-14] MEDS: Acetaminophen 325 MG TABLET 975 MG PO (22:23)
[2024-08-14 23:36] VITALS: BP 94/45; PULSE 77; RESP 16; TEMP 36.7; O2SAT 96
== END 2024-08-14 23:43 | disposition home or self-care (01) ==
PROVIDERS: Emergency Provider Student in an Organized Health Care Education/Training Program; PCP Family Medicine
DX: S09.8XXA Other specified injuries of head, initial encounter (principal); W20.8XXA Other cause of strike by thrown, projected or falling object, initial encounter; Y93.89 Activity, other specified; Y92.018 Other place in single-family (private) house as the place of occurrence of the external cause; Y99.9 Unspecified external cause status; R51.9 Headache, unspecified
CPT/HCPCS: 70450; 72125; 96372; 99283; 99284; J1885

== ENCOUNTER 2025-01-27 15:42 | Emergency (ER) | payer MEDICAID, SELFPAY ==
--- NOTE | ~2025-01-27 | XR_ITS ---
EXAMINATION: XR CHEST CLINICAL INFORMATION: Chest pain COMPARISON: 05/26/2017. TECHNIQUE: Frontal view of the chest was obtained. FINDINGS: The cardiac, hilar, and mediastinal contours are normal. Minimal patchy opacity abutting the right heart border. Lungs otherwise clear. No pneumothorax or effusion. No focal osseous or soft tissue abnormality. XR/XR chest 1V IMPRESSION: Minimal patchy opacity abutting the right heart border, which could represent pneumonia in the appropriate clinical setting. Electronically signed by: Abdulaziz Payton MD 01/27/2025 04:37 PM EDT
[2025-01-27 15:59] VITALS: BP 116/65; PULSE 60; RESP 16; TEMP 36.9; O2SAT 100; BMI 36.6
--- NOTE | 2025-01-27 16:05 | ED_ITS ---
HPI - General Adult General Chief complaint: Abdominal Pain Stated complaint: abd pain Time Seen by Provider: 01/27/25 19:31 Source: patient Limitations: no limitations History of Present Illness ED Provider: Carlota Cardenas PA-C HPI narrative: 49-year-old female with a history of morbid obesity, iron deficiency anemia, prior gastric bypass 2016, presents with multiple complaints. Patient complains of diffuse abdominal pain x2 weeks. Associated nausea vomiting. Patient states she has been using Pepto-Bismol, now having black stools. Denies diarrhea, constipation, fever or cough or cold symptoms. Related Data Previous Rx's ?Medication ?Instructions ?Recorded ferrous sulfate 324 mg (65 mg 324 mg PO DAILY #30 tabs 07/02/21 iron) tablet,delayed release cholecalciferol (vitamin D3) 50 50 mcg PO DAILY #30 caps 07/06/21 mcg (2,000 unit) capsule vitamin A palmitate 3,000 mcg 10,000 unit PO DAILY #30 tabs 01/31/22 (10,000 unit) tablet docusate sodium 100 mg capsule 100 mg PO BEDTIME #30 caps 07/13/22 (DOK) polyethylene glycol 3350 17 238 g PO ONCE 1 day #238 grams 11/28/23 gram/dose oral powder (Miralax) bisacodyl 5 mg tablet,delayed 20 mg (4 x 5 mg) PO ONCE 1 day #4 11/29/23 release (Dulcolax (bisacodyl)) tabs bisacodyl 5 mg tablet,delayed 20 mg (4 x 5 mg) PO ONCE 1 day #4 03/05/24 release (Dulcolax (bisacodyl)) tabs polyethylene glycol 3350 17 238 g PO ONCE 1 day #238 grams 03/05/24 gram/dose oral powder (Miralax) ondansetron HCl 4 mg tablet 4 mg PO Q8H PRN nausea and 01/27/25 vomiting #10 tabs sucralfate 100 mg/mL oral 10 ml PO QID PRN indigestion #300 01/27/25 suspension (Carafate) mL Allergies Allergy/AdvReac Type Severity Reaction Status Date / Time ENVIROMENTAL Allergy Intermediate HAYFEVER,NASAL Uncoded 01/27/25 16:01 CONGESTION Review of Systems 2 Review of Systems: Yes all other systems are reviewed and are negative Constitutional: Constitutional: Denies fatigue and Denies fever(s) Cardiovascular: Cardiovascular: Denies chest pain and Denies dyspnea Respiratory: Respiratory: Denies cough and Denies dyspnea Gastrointestinal: Gastrointestinal: Reports abdominal pain, Reports melena, Denies constipation, Denies diarrhea, Reports nausea and Reports vomiting Endocrine: Endocrine: Denies fatigue [facility] Past Medical History Attestation statement: The following information was validated with the patient. Medical History Ovarian cyst Surgical History History of back surgery Hx of section Hx of gastric bypass Family History Family History Mother Diabetes Hypertension Father No problems noted. Sister No problems noted. Brother Asthma Brother No problems noted. Daughter No problems noted. Son No problems noted. Son No problems noted. Daughter No problems noted. Social History Social History (Updated 11/28/23 @ 12:00 by Ping Alegria) Household Members: Family Alcohol intake: current Alcohol intake frequency: does not drink Patient Tobacco Use Status: Former Tobacco user Physical Exam ED Vital Signs: Vital Signs - 24 hr 01/27/25 15:59 01/27/25 19:14 01/27/25 21:04 Temperature 98.5 F 97.8 F 97.8 F Pulse Rate 60 66 66 Respiratory Rate 16 16 16 Blood Pressure 116/65 119/62 119/62 Pulse Oximetry 100 99 99 Oxygen Delivery Method Room Air Room Air Room Air BMI result Body Mass Index 36.6 Const Other: Alert Orientation/consciousness: patient oriented x3 Resp Effort & Inspection: normal respiratory effort Cardio Other: Normal peripheral perfusion GI Other: Abdomen is soft, nondistended, obese, generalized tenderness without guarding Skin Other: Warm dry no rash Neuro General: patient oriented x3, gait normal, no focal motor deficits and CN's II- XI intact bilaterally Psych Other: Cooperative Course Course Course Narrative: RME: 49-year-old female presents to ED for epigastric abdominal pain with nausea vomiting and black stool after drinking Pepto-Bismol. Patient states epigastric abdominal pain radiates to left chest. Patient denies any shortness of breath. Patient has history of gastric bypass. Medications Administered Discontinued Medications Generic Name Dose Route Start Last Admin Trade Name Freq PRN Reason Stop Dose Admin Acetaminophen 975 mg 01/27/25 20:33 01/27/25 20:55 Acetaminophen 325 Mg Tablet PO 01/27/25 20:34 975 mg ONCE ONE Administration Medical Decision Making Medical Decision Making MDM Narrative: 49-year-old female with a history of morbid obesity, iron deficiency anemia, prior gastric bypass 2016, presents with multiple complaints. Patient complains of diffuse abdominal pain x2 weeks. Associated nausea vomiting. Patient states she has been using Pepto-Bismol, now having black stools. Denies diarrhea, constipation, fever or cough or cold symptoms. Problem: Obesity, anemia History: Per patient I have considered the following differential diagnoses: Gastritis, biliary colic, cholecystitis, constipation, pancreatitis , ACS Plan: Given distribution of discomfort over upper abdomen, considering biliary versus gastric versus pancreatic etiology as cause for her symptoms. However, her abdominal exam was benign, her liver function tests and lipase are completely normal. She was not require dedicated imaging. Atypical presentation for ACS was considered given epigastric discomfort, screening labs including a cardiac enzymes EKG and chest x-ray were obtained. To note she has no known risk factors beyond obesity for coronary artery disease. She did test positive for influenza. She is out of the window for Tamiflu. I have independently reviewed the following tests: Labs: No leukocytosis, not anemic, no electrolyte abnormality, influenza a positive, troponin negative EKG: Sinus bradycardia, rate of 59, no ischemic changes no ectopy, QTC 429 Chest x-ray: XR/XR chest 1V IMPRESSION: Minimal patchy opacity abutting the right heart border, which could represent pneumonia in the appropriate clinical setting. Lab Data 01/27/25 16:30 01/27/25 16:30 Labs: Lab Results 01/27/25 Range/Units 16:30 WBC 6.5 (4.8-10.8) X10*3/uL RBC 4.39 (4.20-5.50) X10*6/uL Hgb 10.5 L (12.0-16.0) g/dl Hct 34.3 L (37.0-47.0) % MCV 78.1 L (80.0-98.0) fL MCH 23.9 L (27.0-33.0) pg MCHC 30.6 L (31.0-35.0) g/dl RDW 16.6 H (11.0-16.0) % Plt Count 294 (160-400) X10*3/uL MPV 10.4 (9.4-12.3) fL Immature Gran % (Auto) 0.3 (0.0-0.4) % Neut % (Auto) 57.6 (45-73) % Lymph % (Auto) 34.3 (20-40) % Warren % (Auto) 6.3 (2-11) % Eos % (Auto) 0.6 (0-4) % Baso % (Auto) 0.9 (0-2) % Lymph # (Auto) 2.2 (1.2-4.9) X10*3/uL Warren # (Auto) 0.4 (0.1-1.2) X10*3/uL Eos # (Auto) 0.0 (0.0-0.4) X10*3/uL Baso # (Auto) 0.1 (0.0-0.2) X10*3/uL Abs Immat Gran (auto) 0.02 (0.00-0.03) X10*3/uL Absolute Neuts (auto) 3.7 (2.0-8.3) x10*3/uL Absolute Nucleated RBC 0.000 (0.0-0.012) X10*3/uL Nucleated RBC % (auto) 0.0 (0.0-0.2) /100WBC PT 12.3 (10.9-12.4) SEC INR 1.1 (0.9-1.1) APTT 26.8 (26.0-36.8) SEC Sodium 139 (135-145) mmol/L Potassium 4.0 (3.3-5.1) mmol/L Chloride 107 (96-108) mmol/L Carbon Dioxide 25 (22-29) mmol/L Anion Gap 11 L (12-20) BUN 12 (9-16) mg/dL Creatinine 0.76 (0.5-1.4) mg/dL Estim Creat Clear Calc 124.8 Estimated GFR > 60 Random Glucose 87 (60-115) mg/dL Calcium 9.0 (8.4-10.2) mg/dL Total Bilirubin 0.3 (0.0-1.0) mg/dL AST 21 (5-31) U/L ALT 14 (0-31) U/L Alkaline Phosphatase 58 (39-117) U/L Troponin I High Sens < 2.7 (<3.5-17.0) ng/L Total Protein 7.5 (6.5-8.0) g/dL Albumin 3.9 (3.5-5.0) g/dL Lipase 28 (8-78) U/L Influenza Type A (PCR) POSITIVE A (Negative) Influenza Type B (PCR) NEGATIVE (Negative) RSV RNA Qual (PCR) NEGATIVE (Negative) SARS-CoV-2 RNA (RT-PCR) NEGATIVE (Negative) Discharge Plan Discharge Clinical Impression: Influenza A Patient Disposition: Home, Self-Care Instructions: Influenza (ED) Additional Instructions: You tested positive for influenza. See home care instructions. Uses Zofran as needed for nausea vomiting. Use the Carafate as needed for upper abdominal discomfort. The Pepto-Bismol is what is causing your black tarry stool. For headache fever and body ache you can use OTC tylenol 1000 mg taken every 8 hours with food. Follow up with your primary care provider as needed. Prescriptions: New sucralfate [Carafate] 100 mg/mL suspension 10 ml PO QID PRN (Reason: indigestion) Qty: 300 0RF Rx Instructions: swish in mouth and swallow; use after food/drink ondansetron HCl 4 mg tablet 4 mg PO Q8H PRN (Reason: nausea and vomiting) Qty: 10 0RF No Action cholecalciferol (vitamin D3) 50 mcg (2,000 unit) capsule 50 mcg PO DAILY Qty: 30 6RF vitamin A palmitate 10,000 unit tablet 10,000 unit PO DAILY Qty: 30 8RF docusate sodium [DOK] 100 mg capsule 100 mg PO BEDTIME Qty: 30 2RF polyethylene glycol 3350 [Miralax] 17 gram/dose powder 238 g PO ONCE 1 Days Qty: 238 0RF Rx Instructions: Take as directed by mouth the day before your procedure. bisacodyl [Dulcolax (bisacodyl)] 5 mg tablet,delayed release (DR/EC) 20 mg PO ONCE 1 Days Qty: 4 0RF Rx Instructions: take at noon the day before colonoscopy ferrous sulfate 324 mg (65 mg iron) tablet,delayed release (DR/EC) 324 mg PO DAILY Qty: 30 0RF Rx Instructions: Don't take with dairy products. Take 500 mg vitamin C with tabs. polyethylene glycol 3350 [Miralax] 17 gram/dose powder 238 g PO ONCE 1 Days Qty: 238 0RF Rx Instructions: take orally as directed prior to colonoscopy bisacodyl [Dulcolax (bisacodyl)] 5 mg tablet,delayed release (DR/EC) 20 mg PO ONCE 1 Days Qty: 4 0RF Rx Instructions: take 4 tabs at noon the day before your colonoscopy Stand Alone Forms: Work/School Release Interventions: ED Discharge Assessment Last Done: 01/27/25 21:04 Discharge Date/Time: 01/27/25 21:08 Print Language: Romanian
--- NOTE | 2025-01-27 16:06 | ECG_ITS ---
Test Reason : ABD PAIN Blood Pressure : */* mmHG Vent. Rate : 59 BPM Atrial Rate : 59 BPM P-R Int : 184 ms QRS Dur : 90 ms QT Int : 434 ms P-R-T Axes : * -14 22 degrees QTcB Int : 429 ms Sinus bradycardia with sinus arrhythmia Minimal voltage criteria for LVH, may be normal variant ( R in aVL ) Borderline ECG When compared with ECG of 09-Nov-2007 10:40, No significant changes seen Referred By: Francis Crockett Electronically Signed By: Dallas Hansen
[2025-01-27 16:36] LABS: MANUAL DIFF FLAG NO
[2025-01-27 16:39] LABS: Basophils Absolute Auto 0.1 X10*3/uL (0.0-0.2); Basophils Percent Auto 0.9 % (0-2); Eosinophils Percent Auto 0.6 % (0-4); Hematocrit 34.3 % (37.0-47.0); Hemoglobin 10.5 g/dl (12.0-16.0); Imm Gran Abs Auto 0.02 X10*3/uL (0.00-0.03); Imm Gran Pct Auto 0.3 % (0.0-0.4); Lymphocytes Absolute Auto 2.2 X10*3/uL (1.2-4.9); Lymphocytes Percent Auto 34.3 % (20-40); Mean Corpuscular HGB Conc 30.6 g/dl (31.0-35.0); Mean Corpuscular Hemoglobin 23.9 pg (27.0-33.0); Mean Corpuscular Volume 78.1 fL (80.0-98.0); Mean Platelet Volume 10.4 fL (9.4-12.3); Monocytes Absolute Auto 0.4 X10*3/uL (0.1-1.2); Monocytes Percent Auto 6.3 % (2-11); Neutrophils Absolute Auto 3.7 x10*3/uL (2.0-8.3); Neutrophils Percent Auto 57.6 % (45-73); Platelet Count 294 X10*3/uL (160-400); Red Blood Count 4.39 X10*6/uL (4.20-5.50); Red Cell Distribution Width 16.6 % (11.0-16.0); White Blood Count 6.5 X10*3/uL (4.8-10.8)
[2025-01-27 16:44] LABS: INTERNATIONAL NORM RATIO 1.1 (0.9-1.1); Prothrombin Time 12.3 SEC (10.9-12.4)
[2025-01-27 16:46] LABS: Partial Thromboplastin Time 26.8 SEC (26.0-36.8)
[2025-01-27 17:03] LABS: Alanine Aminotransferase 14 U/L (0-31); Albumin Level 3.9 g/dL (3.5-5.0); Anion Gap 11 (12-20); Aspartate Amino Transferase 21 U/L (5-31); Bilirubin Total 0.3 mg/dL (0.0-1.0); Blood Urea Nitrogen 12 mg/dL (9-16); Carbon Dioxide 25 mmol/L (22-29); Chloride 107 mmol/L (96-108); Creatinine Clr Calc Pharmacy 124.8; Estimated Glomerular Filt Rate > 60; Glucose Random 87 mg/dL (60-115); Lipase 28 U/L (8-78); Sodium 139 mmol/L (135-145); Total Protein 7.5 g/dL (6.5-8.0)
[2025-01-27 17:24] LABS: Troponin-I High Sensitivity < 2.7 ng/L (<3.5-17.0)
[2025-01-27 17:26] LABS: Influenza A PCR POSITIVE (Negative); Influenza B PCR NEGATIVE (Negative); Resp Syncy Virus RNA Qual PCR NEGATIVE (Negative); SARS COV2 PCR INHOUSE NEGATIVE (Negative)
[2025-01-27 17:31] LABS: Alkaline Phosphatase 58 U/L (39-117)
--- OUTSIDE RECORDS SUMMARY | 2025-01-27 18:41 | XMS_ITS | Encounter Summary ---
Author Organization [employer] Address [address] [facility] [address] [place] [address] Care Team Providers Care Rolled Gold Plater Name Role Phone Rosibel Burden MD Primary Care Provider [phone]- [phone] Mali Krishna Unavailable Reason for Visit * Reason Onset Date Comments Nurse Triage 04/08/2024 Encounter Details Date Type Department Care Team ([facility] st Contact Info) Description 04/08/[address] [facility] [address] [place], [place] [phone] Rosibel Burden MD [address] [place], [place] [phone] Nurse Triage Social History Tobacco Use Types Packs/Day Years Used Date Smoking Tobacco: Former Cigarettes Passive Smoke Exposure: Current Smokeless Tobacco: Never Depression Answer Date Recorded Patient Health Questionnaire-9 Score 0 11/08/2023 Patient Health Questionnaire-9 Score 0 11/08/2023 Last PHQ-9: Questionnaire Data Not on file 0 11/08/2023 Housing Stability Answer Date Recorded What is your housing situation today? I have lacho warren 11/08/[address] you li ve. Do you have problems with any of the following? None of the above 11/08/2023 Food Insecurity Answer Date Recorded Within the past 12 months, y ou worried that your food would run out before you got money to buy more: Never True 11/08/2023 Within the past 12 months,th e food you bought just didn't last and you didn't have enough money to get more: Never True Transportation Answer Date Recorded In the past 12 months, has l ack of transportation kept you from medical appts, meetings, work or from getting things needed for daily living? No 11/08/2023 Utilities Answer Date Recorded In the past 12 months, has t he electric, gas, oil or water company threatened to shut off services in your home? No 11/08/2023 Depression Answer Date Recorded Patient Health Questionnaire-2 Score 0 11/08/2023 Comments Unknown Sex and Gender Information Value Date Recorded Sex Assigned at Female 08/22/2022 10:14 AM EDT Legal Sex Female 10:14 AM EDT Gender Identity Female 08/22/2022 10:14 AM EDT Sexual Orientation Choose not to disclose 2021 10:14 AM EDT documented as of this encounter Miscellaneous Notes * Telephone Encounter - Amanda Epps RN - 04/08/2024 10:29 AM EDT Called pt. She states that she has been having Anxiety x past few days. Pt states that yesterday she got nervous and felt like she couldn't breath. Pt. Did not pass out or lose consciousness. Pt states that she has been going through a lot of stress x 3 weeks. Pt states she feels shaky most days. Pt states that she feels overwhelmed and she wants to cry all the time. This am she felt very stressed and felt like she is not doing things good enough for her children and she feels overwhelmed. Pt states that she has had Anxiety in the past but the past 2 weeks she has been having increasing Anxiety. Pt is not on any medication. Pt denies thoughts of suicide or self harm but this am she had a fle eting thought of smashing her car into a guard rail after she dropped her kids at school due to momentary stress in the moment. Pt. Is not on any anti anxiety medication at present and she also does not have counseling. Pt is speaking in clear sentences and is not crying or displaying anxiety at present. Appt made for today at 145pm with Dr. Duarte and I will send this note so that [facility] is aware and can a counselor present for appt. Protocol Used: Anxiety and Panic Attack (Adult) Protocol-Based Disposition: See in Office or Video Visit within 3 Days- appt made for today at 145pm with dr. Duarte. Video visit not offered Positive Triage Questions: * Moderate anxiety (e.g., persistent or frequent anxiety symptoms; interferes with sleep, school, or work) * Anxiety symptoms and has not been evaluated for this by doctor (or MECHANICAL SYSTEMS CONTROL ENGINEER/PA) * Panic attacks are increasing in frequency * Patient wants to be seen * Symptoms of anxiety or panic attack and is a chronic symptom (recurrent or ongoing AND present > 4 weeks) * All higher-acuity triage questions were negative Care Advice Discussed: * Note to Triager - Anxiety Symptoms * Reassurance and Education - Anxiety * Anxiety - Healthy Lifestyle Tips * Avoid Caffeine * Avoid Triggers of Anxiety * Stress Reduction * Telephone Encounter - Roma Alegria - 04/08/2024 10:26 AM EDT Symptom: Anxiety or Panic Attack Outcome: Schedule an urgent appointment (within 4 hours) or talk to a nurse or provider soon Reason: Anxiety keeps from normal daily activities (such as school or work) The caller accepted this outcome Please contact pt at [phone] documented in this encounter Plan of Treatment Upcoming Encounters Date Type Department Care Team (Late st Contact Info) Description 01/30/2025 9:15 AM EDT Office Visit [facility] [address] [place] [phone] Rosibel Burden MD [address] [place] [phone] documented as of this encounter Visit Diagnoses Not on filedocumented in this encounter Additional Health Concerns Assessment Noted Time PHQ-9 Depression Total Score: 0 11/08/19 24 3:02 PM EST documented as of this encounter Care Teams Rolled Gold Plater Relationship Specialty Start Date End Date Rosibel Burden MD [address] [place] [phone] PCP - General Family Medicine 10/23/18 Mali Krishna [address]rd [place] [address] Gastroenterology 11/26/24 documented as of this encounter
--- OUTSIDE RECORDS SUMMARY | 2025-01-27 18:41 | XMS_ITS | Encounter Summary ---
Author Organization [employer] Address [address] [facility] 7 [place] [address] Care Team Providers Care Cloth Baler Name Role Phone Rosibel uBrden MD Primary Care Provider +1- [phone] Mali Krishna Unavailable Reason for Visit * Reason Onset Date Comments Nurse Triage 11/07/2023 Encounter Details Date Type Department Care Team ([facility] st Contact Info) Description 11/07/2023 Telephone [facility] MEDICINE [address] [place], [place] [phone] Rosibel Burden MD [address] [place], [place] [phone] Nurse Triage Social History Tobacco Use Types Packs/Day Years Used Date Smoking Tobacco: Some Days Cigarettes Depression Answer Date Recorded Patient Health Questionnaire-9 [...] encounter Miscellaneous Notes * Telephone Encounter - Maureen Garcia RN - 11/07/2023 1:23 PM EST Triage call Pt reports finding a lump in right breast on the side. Lump is described as being the size of a marble, not painful unless pressed with finger, neg for redness, fever, skin change, nippledrainage. Pt reports it can be held with fingers and is movable. Pt has not had this before. Apt with Dr. Lake 11/08/23 @ 245pm. Insurance is verified as active prior to booking. Protocol Used: Breast Symptoms (Adult) Protocol-Based Disposition: See in Office or Video Visit within 3 Days Positive Triage Questions: * Breast lump * Patient wants to be seen * All higher-acuity triage questions were negative Care Advice Discussed: * Reasons To Call Back - You feel a lump - Nipple discharge occurs - Change in appearance of breast - You have more questions - You become worse * Telephone Encounter - Brook Mayfield - 11/07/2023 1:14 PM EST Tc from pt returning call and requesting a call back. * Telephone Encounter - Roma Alegria - 11/07/2023 11:48 AM EST Symptoms: Breast Symptoms, Dizziness Outcome: Schedule an urgent appointment (within 4 hours) or talk to a nurse or provider soon Reason: Started within the past 3 days, pt feels lump on breast but is not painful The caller accepted this outcome Please contact pt at [phone] documented in this encounter Plan of Treatment Upcoming Encounters Date Type Department Care Team ([facility] st Contact Info) Description 01/30/2025 9:15 AM EDT Office Visit [facility] MEDICINE [address] [place] [phone] Rosibel Burden MD [address] [place] [phone] documented as of this encounter Visit Diagnoses Not on filedocumented in this encounter Care Teams Cloth Baler Relationship Specialty Start Date End Date Rosibel Burden MD [address] [place] [phone] PCP - General Family Medicine 10/23/18 Mali Krishna [address] [place] [address] 3rd [place] [address] Gastroenterology 11/26/24 documented as of this encounter
--- OUTSIDE RECORDS SUMMARY | 2025-01-27 18:41 | XMS_ITS | Encounter Summary ---
Author Organization [employer] Address [address] [facility] [address]t [place] [address] Care Team Providers Care Journeyman Wireman Name Role Phone Rosibel Burden MD Primary Care Provider +1- [phone] Mali Krishna Unavailable Reason for Visit * Reason Onset Date Comments Nurse Triage 01/27/2025 Encounter Details Date Type Department Care Team ([facility] st Contact Info) Description 01/27/2025 Telephone [facility] [address] [place], [place] [phone] Rosibel Burden MD [address] [place], [place] [phone] Nurse Triage Social History Tobacco Use Types [...] Telephone Encounter - Amanda Epps RN - 01/27/2025 9:22 AM EDT Called pt. She states that she has been having a lot of stomach pain x 2 weeks. Pt. States that shehas regular BM's. But yesterday pt. BM was dark black. Pt has Hx of Gastric Bypass surgery. Pt. States that in the top of her stomach it hale. Pt. Has been taking Pepto Bismul tablets with only about 15 minutes of relief. Pt. States that sometimes when she eats, she gets pain and vomits due to feeling of food stuck in stomach. Vomit consists of food. Pain scale of pain 5- 6/10 but in am 08/01. Advised pt. To go to [facility] ED. Pt states she will got o ED and also [facility] walk in hours given. Pt. Still wants to make appt with PCP. Appt. Made for 03/01/25 at 915am. Protocol Used: Abdominal Pain - Upper (Adult) Protocol-Based Disposition: Go to ED Now Positive Triage Questions: * Severe abdominal pain (e.g., excruciating) * Black or tarry bowel movements BUT pt. Is taking Pepto Bismul * All higher-acuity triage questions were negative Care Advice Discussed: * Drink Clear Fluids * Avoid Aspirin and NSAIDs * Stop Smoking * Food Recommendations to Reduce Reflux * Telephone Encounter - Ra Aponte - 01/27/2025 9:19 AM EDT Symptom: Abdominal Pain - Female - Not Outcome: Schedule an urgent appointment (within 4 hours) or talk to a nurse or provider soon Reason: Getting worse The caller accepted this outcome. Duration 2 weeks Stool is black / when vomits its a clear liquid that comes out. documented in this encounter Plan of Treatment Upcoming Encounters Date Type Department Care Team (Late st Contact Info) Description 01/30/2025 9:15 AM EDT Office Visit [facility] MEDICINE [address] [place] [address] Rosibel Burden MD [address] [place] [phone] documented as of this encounter Visit Diagnoses Not on filedocumented in this encounter Additional Health Concerns Assessment Noted Time PHQ-9 Depression Total Score: 0 11/08/19 24 3:02 PM EST documented as of this encounter Care Teams Journeyman Wireman Relationship Specialty Start Date End Date Rosibel Burden MD [address] [place] [phone] PCP - General Family Medicine 10/23/18 Mali Krishna [address] [place] [address] Drive 3rd [place] [address] Gastroenterology 11/26/24 documented as of this encounter
--- OUTSIDE RECORDS SUMMARY | 2025-01-27 18:41 | XMS_ITS | Encounter Summary ---
Author Organization [email or web address] [facility] Address [address] [place] [address] [place], [place] [address] Care Team Providers Care Hunter Trapper Name Role Phone Rsoibel Bruden MD Primary Care Provider +1- [phone] Mali Krishna Unavailable Encounter Details Date Type Department Care Team ([facility] Contact Info) Description 08/25/2023 Orders Only [facility] MEDICINE [address] [place] [phone] Rosibel Burden MD [address] [place] [phone] Social History Tobacco Use Types Packs/Day Years Used Date Smoking Tobacco: Some Days Cigarettes Comments Unknown Sex and Gender Information Value Date Recorded Sex Assigned at Female 08/22/2022 10:14 AM EDT Legal Sex Female 10:14 AM EDT Gender Identity Female 08/22/2022 10:14 AM EDT Sexual Orientation Choose not to disclose 2021 10:14 AM EDT documented as of this encounter Plan of Treatment Upcoming Encounters Date Type Department Care Team (Late Contact Info) Description 01/30/2025 9:15 AM EDT Office Visit [facility] MEDICINE [address] [place] [phone] Rosibel Burden MD [address] [place] [phone] documented as of this encounter Visit Diagnoses Not on filedocumented in this encounter Care Teams Hunter Trapper Relationship Specialty Start Date End Date Rosibel Burden MD [address] [place] [phone] PCP - General Family Medicine 10/23/18 Mali Krishna [address] [place] [address] Drive 3rd Floor [place] [address] Gastroenterology 11/26/24 documented as of this encounter
--- OUTSIDE RECORDS SUMMARY | 2025-01-27 18:41 | XMS_ITS | Encounter Summary ---
Author Organization [employer] [facility] Address [address] [place] [address] [address] [place] [address] Care Team Providers Care Grain Elevator Superintendent Name Role Phone Rosibel Burden MD Primary Care Provider +1- [phone] Tomi Mali Unavailable Encounter Details Date Type Department Care Team (Late st Contact Info) Description 11/06/2022 Abstract [facility] MEDICINE [address] [place] [address] [phone] Rosibel Burden MD [address] [place] [address] [phone] Social History Tobacco Use Types Packs/Day Years Used Date Smoking Tobacco: Never Assessed Comments Unknown Sex and Gender Information Value [...] Description 01/30/2025 9:15 AM EDT Office Visit [facility] MEDICINE [address] [place] [address] [phone] Rosibel Burden MD [address] [place] [phone] documented as of this encounter Procedures Procedure Name Priority Date/Time Associated Diagnosis Comments HPV HIGH RISK PCR Routine 01/31/2018 12:00 AM EDT PAP SMEAR Routine 01/31/2018 12:00 AM EDT documented in this encounter Results * HPV High Risk PCR (01/31/2018 12:00 AM EDT) Swab Cervical swab / Unknown Historical Provider LAB MICROBIOLOGY - GENERA L ORDERABLES Final Result IMAGING * Pap Smear (01/31/2018 12:00 AM EDT) Swab Historical Provider LAB CYTOLOGY ORDERABLES F inal Result IMAGING documented in this encounter Visit Diagnoses Not on filedocumented in this encounter Care Teams Grain Elevator Superintendent Relationship Specialty Start Date End Date Rosibel Burden MD [address] [place] [phone] PCP - General Family Medicine 10/23/18 Mali Kirshna [address] [place] [address] [address] [place] [address] Gastroenterology 11/26/24 documented as of this encounter
--- OUTSIDE RECORDS SUMMARY | 2025-01-27 18:41 | XMS_ITS | Encounter Summary ---
Author Organization [employer] Address [address] [facility] 7t [place] [address] Care Team Providers Care Choreography Director Name Role Phone Rosibel Burden MD Primary Care Provider +1- [phone] Tomi Mali Unavailable Encounter Details Date Type Department Care Team (Late st Contact Info) Description 11/26/2024 Orders Only [facility]INE [address] [place], [place] [phone] Rosibel Burden MD [address] [place], [place] [phone] Social History Tobacco Use Types Packs/Day Years [...] Description 01/30/2025 9:15 AM EDT Office Visit [facility] [address] [place] [address] Rosibel Burden MD [address] [place] [address] documented as of this encounter Visit Diagnoses Not on filedocumented in this encounter Additional Health Concerns Assessment Noted Time PHQ-9 Depression Total Score: 0 11/08/19 24 3:02 PM EST documented as of this encounter Care Teams Choreography Director Relationship Specialty Start Date End Date Rosibel Burden MD [address] [place] [address] PCP - General Family Medicine 10/23/18 Mali Krishna [address] [place] [address] 3rd [place] [address] Gastroenterology 11/26/24 documented as of this encounter
--- OUTSIDE RECORDS SUMMARY | 2025-01-27 18:42 | XMS_ITS | Encounter Summary ---
Author Organization [employer] Address [address] [facility] 7t [place] [address] Care Team Providers Care Orthopedics Nurse Name Role Phone Rosible Burden MD Primary Care Provider +1- [phone] Mali Krishna Encounter Details Date Type Department Care Team (Late st Contact Info) Description 01/27/2025 Orders Only GENERIC EXTERNAL DATA DEPARTMENT Provider, Generic External Data Social History Tobacco Use Types Packs/Day Years [...] Description 01/30/2025 9:15 AM EDT Office Visit [facility] MEDICINE [address] [place] [address] Rosibel Burden MD [address] [place], [place] [phone] documented as of this encounter Procedures Procedure Name Priority Date/Time Associated Diagnosis Comments HIGH SENSITIVITY TROPONIN I Routine 01/27/2025 4:30 PM EDT SARS COV2/INFLUENZA A/B AND RSV RNA QL NAAT Routine 01/27/2025 4:30 PM EDT CBC WITH AUTO DIFFERENTIAL Routine 01/27/2025 4:30 PM EDT APTT Routine 01/27/2025 4:30 PM EDT PROTHROMBIN TIME-INR Routine 01/27/2025 4:30 PM EDT LIPASE Routine 01/27/2025 4:30 PM EDT COMPREHENSIVE METABOLIC PANEL Routine 01/27/2025 4:30 PM EDT XR CHEST 1 VIEW Routine 01/27/2025 4:06 PM EDT documented in this encounter Results * (ABNORMAL) SARS-CoV-2 RNA, Influenza A/B, and RSV RNA, Ql NAAT (01/27/2025 4:30 PM EDT) Influenza A PCR POSITIVE(A) Negative [facility] Influenza B PCR NEGATIVE Negative [facility] Resp Syncy Virus RNA Qual PCR NEGATIVE Negative [facility] SARS COV2 PCR NEGATIVE Negative [facility] Comment:All test results mus t be correlated with clinical findings.Negative results do not preclude SARS-CoV2, influenza Avirus, influenza B virus and/or RSV infectionand should not be used as the sole basis for treatment orother patient management decisions. Negative results must becombined with clinical observations, patient history, andepidemiological information.This test has not been evaluated for monitoring treatment ofinfection.This test has been authorized by the FDA under an EmergencyUse Authorization (EUA) for use by authorized laboratories.Testing performed on the [employer] GeneXpert utilizingreal-time RT-PCR.All SARS CoV2 and positive influenza A/B results arereported to [facility]. 01/27/2025 4:30 PM EDT 01/27/2025 4:34 PM EDT Generic External Data Provider LAB MICROBIOLOGY - GENERAL ORDERABLES Final Result Performing Organization Address [facility]/ZIP Co de Phone Number [facility] [address] [place] [phone] * High Sensitivity Troponin I (01/27/2025 4:30 PM EDT) [facility] [place] TROPONIN I HIGH SENSITIVITY <2.7 <3.5 - 17.0 ng/L [facility] Comment:The Han high sens itivity Troponin-I results should beused in conjunction with other diagnostic information suchas ECG, clinical observations and information, and patientsymptoms to aid in the diagnosis of ND. 01/27/2025 4:30 PM EDT 01/27/2025 4:34 PM EDT Generic External Data Provider LAB BLOOD ORDERAB LES Final Result Performing Organization Address [facility]/ZIP Co de Phone Number [facility] [address] [place] [phone] * Lipase (01/27/2025 4:30 PM EDT) Lipase 28 8 - 78 U/L [facility] 01/27/2025 4:30 PM EDT 01/27/2025 4:34 PM EDT us Generic External Data Provider LAB BLOOD ORDERAB LES Final Result [facility] [address] [place], [place] [phone] * (ABNORMAL) Comprehensive Metabolic Panel (01/27/2025 4:30 PM EDT) Sodium 139 135 - 145 mmol/L [facility] Potassium 4.0 3.3 - 5.1 mmol/L [facility] Chloride 107 96 - 108 mmol/L [facility] Carbon Dioxide 25 22 - 29 mmol/L [facility] Anion Gap 11(L) 12 - 20 [facility] Urea Nitrogen (BUN) 12 9 - 16 mg/dL [facility] Creatinine, Serum 0.76 0.5 - 1.4 mg/dL [facility] Creatinine Clr Calc Pharmacy 124.8 [facility] Comment:Provided height and weight: 177.8 cm,115.666 kg.eGFR (calculated from the MDRD study equation) and eCrCl(calculated from the Cockcroft-Gault equation) are based ondifferent parameters and may not yield comparable results.If eCrCl result is absurd, please check patient'sheight/weight. Estimated Glomerular Filt Rate >60 [facility] Comment:Chronic Kidney Disea se: Estimated GFR < 60 mL/min/1.40k9Wzrwgm Kidney Disease: Estimated GFR < 15 mL/min/1.73m2 Glucose 87 60 - 115 mg/dL [facility] Calcium 9.0 8.4 - 10.2 mg/dL [facility] Bilirubin, Total 0.3 0.0 - 1.0 mg/dL [facility] Aspartate Amino Transferase 21 5 - 31 U/L [facility] Alanine Aminotransferase 14 0 - 31 U/L [facility] Total Protein 7.5 6.5 - 8.0 g/dL [facility] Albumin Level 3.9 3.5 - 5.0 g/dL [facility] Alkaline Phosphatase 58 39 - 117 U/L [facility] 01/27/2025 4:30 PM EDT 01/27/2025 4:34 PM EDT Generic External Data Provider LAB BLOOD ORDERAB LES Final Result Performing Organization Address City/[facility] Co de Phone Number [facility] [address] [place] [phone] * Partial Thromboplastin Time, Activated (APTT) (01/27/2025 4:30 PM EDT) Partial Thromboplastin Time 26.8 26.0 - 36.8 SEC [facility] Comment:For information rega rding the monitoring of direct thrombininhibitors, please refer to Pharmacy. 01/27/2025 4:30 PM EDT 01/27/2025 4:34 PM EDT Generic External Data Provider LAB BLOOD ORDERAB LES Final Result Performing Organization Address [facility] de Phone Number [facility] [address] [place] [phone] * Prothrombin Time-INR (01/27/2025 4:30 PM EDT) Prothrombin Time 12.3 10.9 - 12.4 SEC [facility] INTERNATIONAL NORM RATIO 1.1 0.9 - 1.1 [facility] Comment:INTERNATIONAL NORMAL IZED RATIO (INR) REFERENCE RANGES Reference RangeFor patients not on anticoagulant therapy: 0.9 - 1.1INR ranges for oral anticoagulanttherapy:For prevention and treatment of venous thrombosis and pulmonary embolism: 2.0 - 3.0For acute myocardial infarction with aspirin therapy: 2.0 - 3.0For acute myocardial infarction without aspirin therapy: 3.0 - 4.0For patients with mechanical prosthetic heart valves: 2.5 - 3.5 01/27/2025 4:30 PM EDT 01/27/2025 4:34 PM EDT us Generic External Data Provider LAB BLOOD ORDERAB LES Final Result [facility] [address] [place] [phone] * (ABNORMAL) CBC auto differential (01/27/2025 4:30 PM EDT) White Blood Count 6.5 4.8 - 10.8 X10*3/uL [facility] Red Blood Count 4.39 4.20 - 5.50 X10*6/uL [facility] Hemoglobin 10.5(L) 12.0 - 16.0 g/dl [facility] Hematocrit 34.3(L) 37.0 - 47.0 % [facility] Mean Corpuscular Volume 78.1(L) 80.0 - 98.0 fL [facility] Mean Corpuscular Hemoglobin 23.9(L) 27.0 - 33.0 pg [facility] Mean Corpuscular HGB Conc 30.6(L) 31.0 - 35.0 g/dl [facility] Red Cell Distribution Width 16.6(H) 11.0 - 16.0 % [facility] Platelet Count 294 160 - 400 X10*3/uL [facility] Mean Platelet Volume 10.4 9.4 - 12.3 fL [facility] Neutrophils Percent Auto 57.6 45 - 73 % [facility] Imm Gran Pct Auto 0.3 0.0 - 0.4 % [facility] Lymphocytes Percent Auto 34.3 20 - 40 % [facility] Monocytes Percent Auto 6.3 2 - 11 % [facility] Eosinophils Percent Auto 0.6 0 - 4 % [facility] Basophils Percent Auto 0.9 0 - 2 % [facility] NRBC Pct Auto 0.0 0.0 - 0.2 /100WBC [facility] Neutrophils Absolute Auto 3.7 2.0 - 8.3 x10*3/uL [facility] Imm Gran Abs Auto 0.02 0.00 - 0.03 X10*3/uL [facility] Lymphocytes Absolute Auto 2.2 1.2 - 4.9 X10*3/uL [facility] Monocytes Absolute Auto 0.4 0.1 - 1.2 X10*3/uL [facility] Eosinophils Absolute Auto 0.0 0.0 - 0.4 X10*3/uL [facility] Basophils Absolute Auto 0.1 0.0 - 0.2 X10*3/uL [facility] NRBC Abs Auto 0.000 0.0 - 0.012 X10*3/uL [facility] 01/27/2025 4:30 PM EDT 01/27/2025 4:34 PM EDT us Generic External Data Provider LAB BLOOD ORDERAB LES Final Result Performing Organization Address City/State/[facility] Co de Phone Number [facility] [address] [place] [phone] * XR Chest 1 View (01/27/2025 4:06 PM EDT) Anatomical Region Laterality Modality Chest Radiographic Aimee ging 01/27/2025 4:06 PM EDT Narrative 01/27/2025 4:40 PM EDT ? [facility] ?[address] ?[place] [address] ?XRay Report ? Signed ? Patient: Connell,Kaylee ?MR#: [id number] ?? 80 ? : 1975 ?Acct:[id number] ? Age/Sex: 49 / F ?ADM Date: 04/07/25 ? Loc: HO.ED ? Attending Dr: ? Ordering Physician: Francis Crockett ?? Date of Service: 01/27/25 ?? Procedure(s): XR chest 1V ?? Accession Number(s): [id number] ? cc: Francis Crockett; Rosibel Burden MD ? EXAMINATION: ?? XR CHEST ? CLINICAL INFORMATION: ?? Chest pain ? COMPARISON: ?? 05/26/2017. ? TECHNIQUE: ?? Frontal view of the chest was obtained. ? FINDINGS: ?? The cardiac, hilar, and mediastinal contours are normal. ? Minimal patchy opacity abutting the right heart border. Lungs otherwise ?? clear. No pneumothorax or effusion. ? No focal osseous or soft tissue abnormality. ? XR/XR chest 1V ?? IMPRESSION: ?? Minimal patchy opacity abutting the right heart border, which could ?? represent pneumonia in the appropriate clinical setting. ? Electronically signed by: ??Abdulaziz Payton MD ??01/27/2025 04:37 PM EDT RP ? Dictated By: ?Abdulaziz Payton MD ? Signed By: ?<Electronically signed by Abdulaziz Payton MD in OV> ?01/27/25 1637 ? DD/ 1606 ? TD/TT: 01/27/25 1622 ? Park Guide: ? Procedure Note Sierra Perez - 01/27/[address] [address] XRay Report Signed Patient: Kaylee ConnellMR#: [id number] 80 : 1975Acct:[id number] Age/Sex: 49 / FADM Date: 01/27/25 Loc: .ED Attending Dr: Ordering Physician: Francis Crockett Date of Service: 01/27/25 Procedure(s): XR chest 1V Accession Number(s): [id number] cc: Francis Crocektt; Rosibel Burden MD EXAMINATION: XR CHEST CLINICAL INFORMATION: Chest pain COMPARISON: 05/26/2017. TECHNIQUE: Frontal view of the chest was obtained. FINDINGS: The cardiac, hilar, and mediastinal contours are normal. Minimal patchy opacity abutting the right heart border. Lungs otherwise clear. No pneumothorax or effusion. No focal osseous or soft tissue abnormality. XR/XR chest 1V IMPRESSION: Minimal patchy opacity abutting the right heart border, which could represent pneumonia in the appropriate clinical setting. Electronically signed by: Abdulaziz Payton MD 01/27/2025 04:37 PM EDT RP Dictated By: Abdulaziz Payton MD Signed By: <Electronically signed by Abdulaziz Payton MD in OV> 01/27/25 1637 DD/ 1606 TD/TT: 01/27/25 1622 Park Guide: [facility] External Provider IMG XR PROCEDURES Final Result documented in this encounter Visit Diagnoses Not on filedocumented in this encounter Additional Health Concerns Assessment Noted Time PHQ-9 Depression Total Score: 0 11/08/19 24 3:02 PM EST documented as of this encounter Care Teams Orthopedics Nurse Relationship Specialty Start Date End Date Rosibel Burden MD [address] [place] [phone] PCP - General Family Medicine 10/23/18 Mali Krishna [address] [place] [address] 3rd [place] [address] Gastroenterology 11/26/24 documented as of this encounter
--- OUTSIDE RECORDS SUMMARY | 2025-01-27 18:42 | XMS_ITS | Clinical Summary ---
Author Organization [employer] Address [address] [place] [address] Care Team Providers Care Shrub Planter Name Role Phone Rosibel Burden MD Primary Care Provider [phone] Mali Krishna Allergies No known active allergies Medications * This document contains information received from the source organization and may not represent a complete record from that organization. hydrOXYzine pamoate (Vistaril) 25 MG capsuleIndicatio ns:Depressive disorder Take 1 capsule by mouth every 6 hours as needed for anxiety. May take 2 capsules if inadequate. Maximum 6 capsules per day. 60 capsule 1 4 Active sertraline (Zoloft) 50 MG tabletIndication s:Depressive disorder Take 50 mg by mouth Once per day. Psychiatric provider Davin Active fluticasone (Flonase) 50 MCG/ACT nasal sprayIndications :Seasonal allergic rhinitis, unspecified trigger Use 1 spray each nostril daily. Shake gently. Before first use, prime pump. After use, clean tip and replace cap. 16 g 2 4 Active loratadine (Claritin) 10 MG tabletIndication s:Seasonal allergic rhinitis, unspecified trigger Take 1 tablet (10 mg) by mouth Once per day. 30 tablet 5 4 Active ferrous sulfate (Fe Tabs) 325 (65 Fe) MG EC tabletIndication s:Iron deficiency anemia, unspecified iron deficiency anemia type Take one tab po every other day. Do not crush, chew, or split. 30 tablet 4 Active cholecalciferol (Vitamin D-3) 25 MCG (1000 UT) tabletIndication s:Vitamin D Deficiency Take 1 tablet (25 mcg) by mouth Once per day. 90 tablet 3 4 06/26/20 25 Active Active Problems Problem Noted Date Diagnosed Date History of gastric bypass 06/26/2024 Overview (06/26/2024): -ordered CBC, BMP, lipid profile, TSH, Hepatic function, Vit D, and Iron panel 06/26/24 Assessment & Plan (06/26/2024 9:54 AM EDT): -ordered CBC, BMP, lipid profile, TSH, Hepatic function, Vit D, and Iron panel 06/26/24 Vitamin D deficiency 06/26/2024 Overview (06/26/2024): Lab Results Component Value Date [id number] 12.9 (L) 06/26/2024 -daily vit d started 06/26/24 Assessment & Plan (06/26/2024 8:07 PM EDT): Lab Results Component Value Date [id number] 12.9 (L) 06/26/2024 -daily vit d started 06/26/24 Anxiety 04/08/2024 Overview (06/26/2024): See under depressive disorder. Assessment & Plan (06/26/2024 9:57 AM EDT): See under depressive disorder. Assessment & Plan (04/08/2024 3:30 PM EDT): During IBH Consult Kaylee presenting with excessive worry/anxiety, difficulty controlling worry, restless/keyed up/On edge, irritability, and sleep disturbance difficulty staying asleep and palpitations, sweating, trembling/shaking, sensation of shortness of breath/smothering, feeling of choking, Chest pain/discomfort, numbness/tingling; for a period of 0-6 mo, for all symptoms in the context of financial concern and employment concern. Kaylee reports having a panic attack recently associated with current stressors. She lost her job and is going through unexpected changes. Family hx of anxiety. Positive support received from family. Open to start medication to treat anxiety (see PCP note). Kaylee was open to try grounding techniques during today's session and explored coping mechanisms to try at home. Engaged patient with open-ended questions, validation of emotions and discussed referral with [facility] due to need of services. PLAN: (check all that apply) New/Additional Services needed PCP management Off-site services for Behavioral Health Integration Plan Patient Self Plan Patient to utilize skills provided in intervention , [facility], Comply with medication , and Patient to reach out to [facility] as needed Pt will contact [facility] program ([place] [facility]) and request same-day appointment for psychotherapy. Cardiac risk counseling 02/14/2024 Overview (06/26/2024): Calculated 06/26/24 The ASCVD Risk score (Tunde CALLES, et al., 2019) failed to calculate for the following reasons: Cannot find a previous HDL lab Cannot find a previous total cholesterol lab No results found for: LDLCHOL -Atherosclerotic Cardiovascular Disease (ASCVD) Risk Calculator is intended for a person age 40-79 without ASCVD and with LDL-cholesterol < 190/mg/dl to assesses the chances of developing heart disease over the next 10 years. -ACC/AHA risk categories based on a person's estimated 10-year risk of CVD: ?Low - <5 percent ?Borderline risk - 5 to 7.4 percent ?Intermediate risk- 7.5 to 19.9 percent ?High risk- >=20 percent -Tobacco cessation: not applicable -Statin therapy:N/A -Importance of moderate physical activity and nutrition interventions discussed. -ordered CBC, BMP, lipid profile, TSH, Hepatic function, Vit D, and Iron panel 06/26/24 Colon cancer screening 11/29/2023 Overview (06/26/2024): -referral placed 06/2023 -Pt had intake with [facility] 11/29/2023 but got info too late and has not heard back -risks and benefits of screenings discussed 05/15/24 on phone, she would like to try cologuard. Order placed 05/15/24. -06/26/24 reports sending in Cologuard recently. Assessment & Plan (06/26/2024 9:57 AM EDT): -referral placed 06/2023 -Pt had intake with [facility] 11/29/2023 but got info too late and has not heard back -risks and benefits of screenings discussed 05/15/24 on phone, she would like to try cologuard. Order placed 05/15/24. -06/26/24 reports sending in Cologuard recently. Breast nodule 11/08/2023 Macromastia 08/16/2023 Overview (06/26/2024): -Referral made to surgeon 08/16/2023 -Since pt has lost weight, she reports heavy breast and back pain. -needs PT prior to surgical evaluation, referred to PT 06/26/24 Assessment & Plan (06/26/2024 10:02 AM EDT): -Referral made to surgeon 08/16/2023 -Since pt has lost weight, she reports heavy breast and back pain. -needs PT prior to surgical evaluation, referred to PT 06/26/24 Assessment & Plan (08/16/2023 11:22 AM EDT): -Referral made to surgeon 08/16/2023 -Since pt has lost weight, she reports heavy breast and back pain. Preventative health care 07/05/2023 Overview (06/26/2024): -next physical exam due after 08/16/2024 -eye care facilitated by DR. Dyson -d[place] -[facility] Care Proxy given and filed 06/26/24 Assessment & Plan (06/26/2024 9:53 AM EDT): -next physical exam due after 08/16/2024 -eye care facilitated by DR. Dyson -dental home is [facility] Care Proxy given and filed 06/26/24 Assessment & Plan (08/16/2023 10:22 AM EDT): -next physical exam due after 08/16/2024 -eye care facilitated by DR. Dyson -dental home [place] Assessment & Plan (07/05/2023 4:45 PM EDT): Pt healthy, no contraindication for fostering. Iron deficiency anemia 02/22/2022 Overview (06/26/2024): Lab Results Component Value Date FERRITIN 3 (L) 06/26/2024 HGB 10.0 (L) 06/26/2024 -iron started 06/26/24 Assessment & Plan (06/26/2024 8:08 PM EDT): Lab Results Component Value Date FERRITIN 3 (L) 06/26/2024 HGB 10.0 (L) 06/26/2024 -iron started 06/26/24 Mild intermittent asthma 07/24/2017 Overview (06/26/2024): -Currently not taking any prescription medication -Pt reports some worsening coughing fits. No systemic symptoms associated. Assessment & Plan (06/26/2024 9:55 AM EDT): -Currently not taking any prescription medication -Pt reports some worsening coughing fits. No systemic symptoms associated. Depressive disorder 09/03/2014 Overview (06/26/2024): -Currently seeing a Therapist at a clinic in [place]. Denies seeing a psychiatrist. -Still taking Zoloft and Hydroxyzine as prescribed by said TherapistJacey. Assessment & Plan (06/26/2024 9:56 AM EDT): -Currently seeing a Therapist at a clinic in [place]. Denies seeing a psychiatrist. -Still taking Zoloft and Hydroxyzine as prescribed by said TherapistJacey. Obstructive sleep apnea syndrome 09/02/2014 Neck pain 08/29/2013 Allergic rhinitis 10/12/2012 Overview (06/26/2024): -recommended Flonase or other nasal sprays. Assessment & Plan (06/26/2024 10:01 AM EDT): -recommended Flonase or other nasal sprays. Cardiomyopathy 10/12/2012 Echocardiogram abnormal 09/17/2012 Edema of lower extremity 09/17/2012 Obesity 08/15/2012 Overview (06/26/2024): Weight in 2013 was 369 lbs and her weight has continue to decreased after that. -Had bariatric surgery in 2016 -ordered CBC, BMP, lipid profile, TSH, Hepatic function, Vit D, and Iron panel 06/26/24 Assessment & Plan (08/16/2023 9:55 AM EDT): Weight in 2013 was 369 lbs and her weight has continue to decreased after that. -Had bariatric surgery in 2016 PCOS (polycystic ovarian syndrome) 08/15/2012 Backache 01/29/2009 Resolved Problems Problem Noted Date Diagnosed Date Resolved Date Stress and adjustment reaction 04/08/2024 06/26/2024 Assessment & Plan (04/08/2024 2:38 PM EDT): -gave empathetic support -encouraged pt to talk to people who she feels comfortable talking to -will place referral for counseling service -will prescribe low dose hydroxyzine Panic attack as reaction to stress 04/08/2024 06/26/2024 Assessment & Plan (04/08/2024 3:30 PM EDT): During IBH Consult Kaylee presenting with excessive worry/anxiety, difficulty controlling worry, restless/keyed up/On edge, irritability, and sleep disturbance difficulty staying asleep and palpitations, sweating, trembling/shaking, sensation of shortness of breath/smothering, feeling of choking, Chest pain/discomfort, numbness/tingling; for a period of 0-6 mo, for all symptoms in the context of financial concern and employment concern. Kaylee reports having a panic attack recently associated with current stressors. She lost her job and is going through unexpected changes. Family hx of anxiety. Positive support received from family. Open to start medication to treat anxiety (see PCP note). Kaylee was open to try grounding techniques during today's session and explored coping mechanisms to try at home. Engaged patient with open-ended questions, validation of emotions and discussed referral with [facility] due to need of services. PLAN: (check all that apply) New/Additional Services needed PCP management Off-site services for Behavioral Health Integration Plan Patient Self Plan Patient to utilize skills provided in intervention , Patient to reach out to [facility] team as needed, Comply with medication , and Patient to reach out to [facility] as needed Pt will contact [facility] program ([place] [facility]) and request same-day appointment for psychotherapy. Encounters Date Type Department Care Team Description 01/27/2025 Orders Only GENERIC EXTERNAL DATA DEPARTMENT Provider, Generic External Data 01/27/2025 Telephone [facility] [address] [place] [phone] Rosibel Burden MD Nurse Triage 11/26/2024 Orders Only [address] [address] Rosibel Burden MD 10/31/[address] [address] Bj Lang [place] December recall from Last 3 Months Immunizations Name Administration Dates Next Due Hep B, adult 06/26/2024,08/16/2023 Influenza injectable quadriv alent IIV4 with preservative 11/08/2021,08/23/2016 Influenza injectable quadrivalent preservative f ree 08/06/2018,07/29/2015 Influenza, IIV3, injectable 09/03/2014 Moderna Covid-19 Vaccine 6+ Bivalent 11/10/2022 Pneumococcal Conjugate PCV 20 06/26/2024 Pneumococcal Polysaccharide PPSV23 08/15/2012 Tdap 06/04/2018,05/14/2015 Social History Tobacco Use Types Packs/Day Years Used Date Smoking Tobacco: Former Cigarettes Passive Smoke Exposure: Current Smokeless Tobacco: Never Tobacco Cessation:Counseling Given: Not Answered Depression Answer Date Recorded Patient Health Questionnaire-9 [...] not to disclose 2021 10:14 AM EDT Last Filed Vital Signs Vital Sign Reading Time Taken Comments Blood Pressure 122/60 06/26/2024 9:36 AM EDT Pulse 49 06/26/2024 9:36 AM EDT Temperature 36.2 ??C (97.1 ??F) 06/26/2024 9:36 AM ED T Respiratory Rate 20 06/26/2024 9:36 AM EDT Oxygen Saturation 95% 06/26/2024 9:36 AM EDT Inhaled Oxygen Concentration - - Weight 127 kg (279 lb) 06/26/2024 9:36 AM EDT Height 176.5 cm (5' 9.5 ) 06/26/2024 9:36 AM EDT Body Mass Index 40.61 06/26/2024 9:36 AM EDT Plan of Treatment Upcoming Encounters Date Type Department Care Team (Late st Contact Info) Description 01/30/2025 9:15 AM EDT Office Visit [facility] [address] [place] [phone] Rosibel Burden MD [address] [place], [place] [phone] Health Maintenance Due Date Last Done Comments CT Colonography 1975 Colonoscopy 1975 Colorectal Cancer Screening 1975 FIT DNA/Cologuard 1975 FIT 1975 FOBT 1975 Sigmoidoscopy 1976 Alcohol/Substance Use Screening 1988 Family Planning (PISQ) 12/31/1991 COVID-19 Vaccine ( season) 2024 11/10/2022, 11/17/2021, 12/09/2020, Additional history exists Influenza Vaccine (#1) 2024 , 08/06/2018, 08/23/2016, Additional history exists Hepatitis B Vaccines (3 of 3 - 19+ 3-dose series) 08/21/2024 06/26/2024, 08/16/2023 Depression Screening 11/08/2024 11/08/2023, 11/08/19 24 SDOH Screening 11/08/2024 11/08/2023 Mammogram 11/10/2024 11/10/2023, 10/23, 08/01/2023 Tobacco Screening 11/26/2025 11/26/2024 Pap Smear 08/16/2026 08/16/2023, 01/31/2018 Zoster Vaccines (1 of 2) 2026 DTaP/Tdap/Td Vaccines (3 - Td or Tdap) 06/04/2028 06/04/2018, 05/14/2015 Cervical Cancer Screening 08/16/2028 HPV/Cotest 08/16/2028 08/16/2023, 01/31/2018 Lipid Panel 06/26/2029 06/26/2024, 06/23, 07/02/2021 RSV Patients and Patients Aged 60 years or older (1 - 1-dose 75+ series) 12/31/2051 HIV Screening Completed 06/26/2024 Hepatitis C Screening Completed 06/26/2024 Pneumococcal Vaccine: Pediatrics (0 to 5 Years) and At-Risk Patients (6 to 49) Years) Completed 06/26/2024, 08/15/2012 HIB Vaccines Aged Out No longer eligi ble based on patient's age to complete this topic HPV Vaccines Aged Out No longer eligi ble based on patient's age to complete this topic Hepatitis A Vaccines Aged Out No long er eligible based on patient's age to complete this topic IPV Vaccines Aged Out No longer eligi ble based on patient's age to complete this topic Meningococcal Vaccine Aged Out No bibi sonu eligible based on patient's age to complete this topic RSV under 20 months Aged Out No longe r eligible based on patient's age to complete this topic Rotavirus Vaccines Aged Out No longer eligible based on patient's age to complete this topic Procedures Procedure Name Priority Date/Time Associated Diagnosis Comments HIGH SENSITIVITY TROPONIN I Routine 01/27/2025 4:30 PM EDT LIPASE Routine 01/27/2025 4:30 PM EDT COMPREHENSIVE METABOLIC PANEL Routine 01/27/2025 4:30 PM EDT APTT Routine 01/27/2025 4:30 PM EDT PROTHROMBIN TIME-INR Routine 01/27/2025 4:30 PM EDT CBC WITH AUTO DIFFERENTIAL Routine 01/27/2025 4:30 PM EDT SARS COV2/INFLUENZA A/B AND RSV RNA QL NAAT Routine 01/27/2025 4:30 PM EDT XR CHEST 1 VIEW Routine 01/27/2025 4:06 PM EDT HEPATITIS C AB W/REFL TO HCV RNA, QN, PCR Routine 06/26/2024 10:25 AM EDT Routine screening for STI (sexually transmitted infection) HIV 1/2 ANTIGEN/ANTIBODY, FOURTH GENERATION W/RFL Routine 06/26/2024 10:25 AM EDT Routine screening for STI (sexually transmitted infection) LIPID PANEL, STANDARD Routine 06/26/2024 10:25 AM EDT Class 3 severe obesity due to excess calories with serious comorbidity and body mass index (BMI) of 40.0 to 44.9 in adult ([facility]) BI MAMMOGRAM DIAGNOSTIC TOMOSYNTHESIS RIGHT Routine 11/10/2023 9:23 AM EST HPV MRNA E6/E7 REFLEX TO HPV 16, 18/45 Routine 08/16/2023 10:44 AM EDT PAP SMEAR Routine 08/16/2023 10:44 AM EDT from Last 3 Months or Most Recently Relevant to Health Maintenance Results * High Sensitivity Troponin I (01/27/2025 4:30 PM EDT) Pathologist [facility] TROPONIN I HIGH SENSITIVITY <2.7 <3.5 - 17.0 ng/L [facility] Comment:The Han high sens itivity Troponin-I results should beused in conjunction with other diagnostic information suchas ECG, clinical observations and information, and patientsymptoms to aid in the diagnosis of SC. 01/27/2025 4:30 PM EDT 01/27/2025 4:34 PM EDT us Generic External Data Provider LAB BLOOD ORDERAB LES Final Result [facility] [address] [place] [phone] * (ABNORMAL) SARS-CoV-2 RNA, Influenza A/B, and RSV RNA, Ql NAAT (01/27/2025 4:30 PM EDT) Pathologist [facility] Influenza A PCR POSITIVE(A) Negative [facility] Influenza B PCR NEGATIVE Negative [facility] Resp Syncy Virus RNA Qual PCR NEGATIVE Negative [facility] SARS COV2 PCR NEGATIVE Negative [facility] Comment:All test results mus t [...] use by authorized laboratories.Testing performed on the Instagram GeneXpert utilizingreal-time RT-PCR.All SARS CoV2 and positive influenza A/B results arereported to [facility]. 01/27/2025 4:30 PM EDT 01/27/2025 4:34 PM EDT us Generic External Data Provider LAB MICROBIOLOGY - GENERAL ORDERABLES Final Result [facility] [address] [place] [phone] * (ABNORMAL) CBC auto differential (01/27/2025 4:30 PM EDT) White Blood Count 6.5 4.8 - 10.8 X10*3/uL [facility] Red Blood Count 4.39 4.20 - 5.50 X10*6/uL [facility] Hemoglobin 10.5(L) 12.0 - 16.0 g/dl [facility] Hematocrit 34.3(L) 37.0 - 47.0 % [facility] Mean Corpuscular Volume 78.1(L) 80.0 - 98.0 fL [facility] Mean Corpuscular Hemoglobin 23.9(L) 27.0 - 33.0 pg [facility] Mean Corpuscular HGB Conc 30.6(L) 31.0 - 35.0 g/dl [facility] Red Cell Distribution Width 16.6(H) 11.0 - 16.0 % [facility] Platelet Count 294 160 - 400 X10*3/uL [facility] Mean Platelet Volume 10.4 9.4 - 12.3 fL [facility] Neutrophils Percent Auto 57.6 45 - 73 % [facility] Imm Gran Pct Auto 0.3 0.0 - 0.4 % [facility] Lymphocytes Percent Auto 34.3 20 - 40 % [facility] Monocytes Percent Auto 6.3 2 - 11 % [facility] Eosinophils Percent Auto 0.6 0 - 4 % [facility] Basophils Percent Auto 0.9 0 - 2 % [facility] NRBC Pct Auto 0.0 0.0 - 0.2 /100WBC [facility] Neutrophils Absolute Auto 3.7 2.0 - 8.3 x10*3/uL [facility] Imm Gran Abs Auto 0.02 0.00 - 0.03 X10*3/uL [facility] Lymphocytes Absolute Auto 2.2 1.2 - 4.9 X10*3/uL [facility] Monocytes Absolute Auto 0.4 0.1 - 1.2 X10*3/uL [facility] Eosinophils Absolute Auto 0.0 0.0 - 0.4 X10*3/uL [facility] Basophils Absolute Auto 0.1 0.0 - 0.2 X10*3/uL [facility] NRBC Abs Auto 0.000 0.0 - 0.012 X10*3/uL [facility] 01/27/2025 4:30 PM EDT 01/27/2025 4:34 PM EDT us Generic External Data Provider LAB BLOOD ORDERAB LES Final Result Performing Organization Address City/[facility] Co de Phone Number [facility] [address] [place] [phone] * Partial Thromboplastin Time, Activated (APTT) (01/27/2025 4:30 PM EDT) Partial Thromboplastin Time 26.8 26.0 - 36.8 SEC [facility] Comment:For information rega rding the monitoring of direct thrombininhibitors, please refer to Pharmacy. 01/27/2025 4:30 PM EDT 01/27/2025 4:34 PM EDT us Generic External Data Provider LAB BLOOD ORDERAB LES Final Result Performing Organization Address City/[facility]/ZIP Co de Phone Number [facility] [address] [place] [phone] * Prothrombin Time-INR (01/27/2025 4:30 PM EDT) Pathologist [facility] Prothrombin Time 12.3 10.9 - 12.4 SEC [facility] INTERNATIONAL NORM RATIO 1.1 0.9 - 1.1 [facility] Comment:INTERNATIONAL NORMAL IZED RATIO (INR) [...] ORDERAB LES Final Result Performing Organization Address [facility] Co de Phone Number [facility] [address] [place] [phone] * Lipase (01/27/2025 4:30 PM EDT) [facility] Lipase 28 8 - 78 U/L [facility] 01/27/2025 4:30 PM EDT 01/27/2025 4:34 PM EDT Generic External Data Provider LAB BLOOD ORDERAB LES Final Result Performing Organization Address [facility] Co de Phone Number [facility] [address] [place] [phone] * (ABNORMAL) Comprehensive Metabolic Panel (01/27/2025 4:30 PM EDT) [facility] Sodium 139 135 - 145 mmol/L [facility] Potassium 4.0 3.3 - 5.1 mmol/L [facility] Chloride 107 96 - 108 mmol/L [facility] Carbon Dioxide 25 22 - 29 mmol/L [facility] Anion Gap 11(L) 12 - 20 [facility] Urea Nitrogen (BUN) 12 9 - 16 mg/dL [facility] Creatinine, Serum 0.76 0.5 - 1.4 mg/dL [facility] Creatinine Clr Calc Pharmacy 124.8 [facility] Comment:Provided height and weight: 177.8 cm,115.666 kg.eGFR (calculated from the MDRD study equation) and eCrCl(calculated from the Cockcroft-Gault equation) are based ondifferent parameters and may not yield comparable results.If eCrCl result is absurd, please check patient'sheight/weight. Estimated Glomerular Filt Rate >60 [facility] Comment:Chronic Kidney Disea se: Estimated GFR < 60 mL/min/1.34b8Iidsgu Kidney Disease: Estimated GFR < 15 mL/min/1.73m2 Glucose 87 60 - 115 mg/dL [facility] Calcium 9.0 8.4 - 10.2 mg/dL [facility] Bilirubin, Total 0.3 0.0 - 1.0 mg/dL [facility] Aspartate Amino Transferase 21 5 - 31 U/L [facility] Alanine Aminotransferase 14 0 - 31 U/L [facility] Total Protein 7.5 6.5 - 8.0 g/dL [facility] Albumin Level 3.9 3.5 - 5.0 g/dL [facility] Alkaline Phosphatase 58 39 - 117 U/L [facility] 01/27/2025 4:30 PM EDT 01/27/2025 4:34 PM EDT us Generic External Data Provider LAB BLOOD ORDERAB LES Final Result [facility] [address] [place] [phone] * XR Chest 1 View (01/27/2025 4:06 PM EDT) Anatomical Region Laterality Modality Chest Radiographic Aimee ging 01/27/2025 4:0 6 PM EDT Narrative 01/27/2025 4:40 PM EDT ? [facility] ?[address] ?[place] [address] ?XRay Report ? Signed ? Patient: Kaylee Connell ?MR#: [id number] ?? 80 ? : 1975 ?Acct:[id number] ? Age/Sex: 49 / F ?ADM Date: 01/27/25 ? Loc: HO.ED ? Attending Dr: ? Ordering Physician: Francis Crockett ?? Date of Service: 01/27/25 ?? Procedure(s): XR chest 1V ?? Accession Number(s): [id number] ? cc: Francis Crockett; Rosibel Burden MD [...] Payton MD ??01/27/2025 04:37 PM EDT RP ?? Workstation: [id number] ? Dictated By: ?Abdulaziz Payton MD ? Signed By: ?<Electronically signed by Abdulaziz Payton MD in OV> ?01/27/25 1637 ? DD/ 1606 ? TD/TT: 01/27/25 1622 ? Department Of Mathematics Chair: ? Procedure Note Sierra Perez - 01/27/[address] [address] XRay Report Signed Patient: KoJeevan#: [id number] 80 : 1975Acct:[id number] Age/Sex: 49 / FADM Date: 01/27/25 Loc: HO.ED Attending Dr: Ordering Physician: Francis Crockett Date of Service: 01/27/25 Procedure(s): XR chest 1V Accession Number(s): [id number] cc: Francis Crockett; Rosibel Burden MD EXAMINATION: XR CHEST CLINICAL [...] Abdulaziz Payton MD 01/27/2025 04:37 PM EDT Dictated By: Abdulaziz Payton MD Signed By: <Electronically signed by Abdulaziz Payton MD in OV> 01/27/25 1637 DD/ 1606 TD/TT: 01/27/25 1622 Department Of Mathematics Chair: [facility] External Provider IMG XR PROCEDURES Final Result * Hepatitis C Antibody with Reflex to HCV, RNA, Quantitative, Real-Time PCR (06/26/2024 10:25 AM EDT) Hepatitis C Antibody Nonreactive Nonreactive [facility] Comment:Antibodies to HCV no t detected; does not exclude early acuteHCV infection. Blood Venous blood specimen / Unknown 06/26/2024 10:25 AM EDT 06/26/2024 10:56 AM EDT Rosibel Burden MD LAB BLOOD ORDERABLES Final Result [facility] [address] [place] [phone] * HIV-1/2 Antigen and Antibodies, Fourth Generation, with Reflexes (06/26/2024 10:25 AM EDT) HIV AB/AG Nonreactive Nonreactive [facility] Comment:HIV-1 p24 Ag and/or HIV-1/HIV-2 Ab not detected.A test result that is nonreactive does not exclude thepossibility of exposure to or infection with HIV-1 and/orHIV-2. Nonreactive results in this assay for individualswith prior exposure to HIV-1 and/or HIV-2 may be due toantigen and antibody levels that are below the limit ofdetection of this assay.The [employer] HIV Ag/Ab Combo assay result andsupplemental assay results should be interpreted inconjunction with the patient's clinical presentation,history and other laboratory results. If the results areinconsistent with clinical evidence, additional testing issuggested to confirm the result. Blood Venous blood specimen / Unknown 06/26/2024 10:25 AM EDT 06/26/2024 10:56 AM EDT us Rosibel Burden MD LAB BLOOD ORDERABLES Final Result [facility] [address] [place] [address] [phone] * (ABNORMAL) Lipid Panel, Standard (06/26/2024 10:25 AM EDT) Triglycerides 105 <150 mg/dL [facility] Comment:Desirable Triglyceri de: less than 150 mg/dLBorderline High Triglyceride 150-199 mg/dLHigh Triglyceride: 200-499 mg/dLVery High Triglyceride: greater than or equal to 5OO mg/dL Cholesterol 173 <200 mg/dL [facility] Comment:Desirable Cholestero l: less than 200 mg/dLBorderline High Cholesterol: 200-239 mg/dLHigh Cholesterol: greater than 239 mg/dL LDL Cholesterol Calculated 106(H) <100 mg/dL [facility] Comment:Desirable LDL: less than 100 mg/dLNear Optimal/Above Optimal LDL: 110- 129 mg/dLBorderline High LDL: 130-159 mg/dLHigh LDL: 160-189 mg/dLVery High LDL: greater than or equal to 190 mg/dL HDL Cholesterol 46 >40 mg/dL [facility] Comment:Desirable HDL: great er than 40 mg/dL Note: This HDL assay may give artificially low results in patients with liver disease. Blood Venous blood specimen / Unknown 06/26/2024 10:25 AM EDT 06/26/2024 10:56 AM EDT us Rosibel Burden MD LAB BLOOD ORDERABLES Final Result [facility] [address] [place] [address] [phone] * BI Mammogram Diagnostic Tomosynthesis Right (11/10/2023 9:23 AM EST) Anatomical Region Laterality Modality Breast Right Mammography 11/10/2023 9:23 AM EST Narrative 11/10/2023 10:01 AM EST ? [facility] [place] ? [address] ?[place] [id number] ? Mammography Report ? Signed ? Patient: Kaylee Connell ?MR#: [id number] ?? 80 ? : 1975 ?Acct:[id number] ? Age/Sex: 47 / F ?ADM Date: 11/10/23 ? Loc: HO.MAMMO ? Attending Dr: Ping Sharp MD ? Ordering Physician: Ping Aguilar MD ?Results: ?? 2Benign Findings ? Date of Service: 11/10/23 ?Follow Up: 1 Year From Orig ?? inal Mammogram ? Procedure(s): MM tomosynthesis diagnostic RT ?? Accession Number(s): [id number] ? cc: Ping Aguilar MD; Rosibel Burden MD ? EXAMINATION: ?? MM DIAGNOSTIC DIGITAL BREAST TOMOSYNTHESIS, RIGHT ?? US BREAST LIMITED, RIGHT ? MAMMOGRAPHY: ?? CLINICAL INFORMATION: ? Palpable abnormality right lower axilla felt by physician, likely lymph ?? node. Painful to patient. ? COMPARISON: ?? Mammography: Baseline mammography 08/01/2023. ? TECHNIQUE: ?? Digital right breast tomosynthesis is performed in the following views: ?? full-field right mediolateral 3-D view was obtained, as well as a spot ?? compression 3-D right CC and ML view. Computer-aided diagnosis was used ?? for this study. ? FINDINGS: ?? There are scattered areas of fibroglandular density (ACR BI-RADS breast ?? composition Category b). ? Within the right axilla, there is a lobular mass which correlates with ?? the focus of palpable concern marked with a BB by the technologist, ?? consistent with a low right axillary lymph node. This does not appear ?? abnormal on mammography but will be interrogated by sonography. It ?? appears essentially unchanged from 08/01/2023 exam. ? Otherwise, there is a stable circumscribed small nodule in the slightly ?? upper outer right breast, unchanged from patient's baseline exam. ?? Parenchymal pattern is stable from prior exam. No suspicious masses, ?? grouped calcifications, or areas of architectural distortion in the ?? right breast. No skin changes noted. ? ULTRASOUND: ?? CLINICAL INFORMATION: ?? As above. ? COMPARISON: ?? None ? TECHNIQUE: ?? Targeted sonographic evaluation right lower axilla was performed using ?? a high frequency linear transducer. ??Selected archived documentation. ? FINDINGS: ? RIGHT BREAST: There is a benign-appearing right lower axillary lymph ?? node which correlates with the palpable focus of concern. This ?? demonstrates a generous fatty hilum, and thin, 1 mm cortex. There is a ?? normal vascular pedicle. There are no suspicious features. It it has a ?? normal morphology. This is benign. ? MM/MM tomosynthesis diagnostic RT ?? IMPRESSION: ?? There are no findings suspicious for malignancy in the right breast. ? Palpable focus in the low axilla correlates with a normal-appearing ?? benign low axillary lymph node. ? Recommend the patient return to routine annual screening mammography to ?? include both breasts. Patient appears to be due in July 2024. ? OVERALL ASSESSMENT: ?? Mammography: BI-RADS 2 - Benign Findings ?? Ultrasound: BI-RADS 2 - Benign Findings ? RECOMMENDATION: ?? 1 year F/U ? Results were provided to the patient at time of visit by the ?? technologist. ? This patient's information was entered into a reminder system with a ?? target due date for their next mammogram. ? Dictated By: ?Abdulaziz Payton MD ? Signed By: ?<Electronically signed by Abdulaziz Payton MD in OV> ?11/10/2357 ? DD/ 2 ? TD/TT: ? Department Of Mathematics Chair: ? Procedure Note Chris, Image - 11/10/2023 [facility] [address] [place] [address] Mammography Report Signed Patient: Kaylee Connell#: [id number] 80 : 1975Acct:[id number] Age/Sex: 47 / FADM Date: 11/10/23 Loc: HO.MAMMO Attending Dr: Ping Sharp MD Ordering Physician: Ping Aguilaresults: 2Benign Findings Date of Service: 11/10/23Follow Up: 1 Year From Orig inal Mammogram Procedure(s): MM tomosynthesis diagnostic RT Accession Number(s): [id number] cc: Ping Aguilar MD; Rosibel Burden MD EXAMINATION: MM DIAGNOSTIC DIGITAL BREAST TOMOSYNTHESIS, RIGHT US BREAST LIMITED, RIGHT MAMMOGRAPHY: CLINICAL INFORMATION: Palpable abnormality right lower axilla felt by physician, likely lymph node. Painful to patient. COMPARISON: Mammography: Baseline mammography 08/01/2023. TECHNIQUE: Digital right breast tomosynthesis is performed in the following views: full-field right mediolateral 3-D view was obtained, as well as a spot compression 3-D right CC and ML view. Computer-aided diagnosis was used for this study. FINDINGS: There are scattered areas of fibroglandular density (ACR BI-RADS breast composition Category b). Within the right axilla, there is a lobular mass which correlates with the focus of palpable concern marked with a BB by the technologist, consistent with a low right axillary lymph node. This does not appear abnormal on mammography but will be interrogated by sonography. It appears essentially unchanged from 08/01/2023 exam. Otherwise, there is a stable circumscribed small nodule in the slightly upper outer right breast, unchanged from patient's baseline exam. Parenchymal pattern is stable from prior exam. No suspicious masses, grouped calcifications, or areas of architectural distortion in the right breast. No skin changes noted. ULTRASOUND: CLINICAL INFORMATION: As above. COMPARISON: None TECHNIQUE: Targeted sonographic evaluation right lower axilla was performed using a high frequency linear transducer. Selected archived documentation. FINDINGS: RIGHT BREAST: There is a benign-appearing right lower axillary lymph node which correlates with the palpable focus of concern. This demonstrates a generous fatty hilum, and thin, 1 mm cortex. There is a normal vascular pedicle. There are no suspicious features. It it has a normal morphology. This is benign. MM/MM tomosynthesis diagnostic RT IMPRESSION: There are no findings suspicious for malignancy in the right breast. Palpable focus in the low axilla correlates with a normal-appearing benign low axillary lymph node. Recommend the patient return to routine annual screening mammography to include both breasts. Patient appears to be due in July 2024. OVERALL ASSESSMENT: Mammography: BI-RADS 2 - Benign Findings Ultrasound: BI-RADS 2 - Benign Findings RECOMMENDATION: 1 year F/U Results were provided to the patient at time of visit by the technologist. This patient's information was entered into a reminder system with a target due date for their next mammogram. Dictated By: Abdulaziz Payton MD Signed By: <Electronically signed by Abdulaziz Payton MD in OV> 11/10/23956 DD/ 2 TD/TT: Department Of Mathematics Chair: us Ping Sharp MD IMG BI PROCEDURES Fin al Result * HPV mRNA E6/E7 w/Reflex to HPV Genotypes 16, 18/45 (08/16/2023 10:44 AM EDT) HPV nRNA E6/E7 Not Detected Not Detected [facility] Comment:Methodology: Transcr iption-Mediated AmplificationThis assay detects E6/E7 viral messenger RNA (mRNA) from 14high-risk HPV types (16,18,31,33,35,39,45,51,52,56,58,59,66,68).Cervical sources are required for HPV testing.If a vaginal source from a patient who has had atotal hysterectomy with removal of cervix wassubmitted, please contact the testing laboratoryfor alternative testing options.For additional information, please refer tohttp://education.[employer]/faq/YFC290n1(This link if provided for information/educational purposes only.)THIS TEST WAS PERFORMED AT:[employer] [place] [phone] GALLO MD HPV mRNA E6/E7 TNP [facility] HPV 16 RNA [facility] HPV 18/45 RNA [facility] 08/16/2023 10:4 4 AM EDT 08/17/2023 7:00 AM EDT us Rosibel Burden MD LAB CYTOLOGY ORDERABLES Fi nal Result [facility] [address] [place] [phone] * Pap Smear (08/16/2023 10:44 AM EDT) 08/16/2023 10:4 4 AM EDT 08/17/2023 7:00 AM EDT Narrative [facility] - 08/22/2023 10:43 AM EDT ----- ------- Name: Kaylee Connell ? Age/Sex: 47/F ? : 1975 Unit#: [id number] ?? Attend Dr: Rosibel Burden MD ?Re08/16/23 ?Status: DEP REF ? Location: HO.CLNP ? Disch: ? ----- ------- SPEC : [id number] ?RECD: 08/17/23 ? STATUS: ??SOUT ? REQ NUM: [id number] ? RUSTY: 08/16/23 ? SUBM DR: Rosibel Burden MD ? ENTERED: ??08/17/23 ?SP TYPE: Pap Smr ?OTHR : ? ORDERED: ??Pap Smear ? Interpretation ?? Satisfactory for evaluation. ?? Coccobacilli consistent with shift in vaginal seven. ?? Microorganisms consistent with Trichomonas vaginalis. ?? Negative for intraepithelial lesion or malignancy. ?HPV mRNA E6/E7: ?NOT DETECTED ? This assay detects E6/E7 viral messenger RNA (mRNA) from 14 high-risk HPV types (16, 18, ?? 31, 33, 35, 39, 45, 51, 52, 56, 58, 59, 66, 68) ?? HPV testing performed by [facility], [place], [place]. ??See reference laboratory ?? pion of the EMR for entire report. ?Clinical Information LMP: Unknown date Previous PAP test: Unknown date/findings ? Material Received ?? ThinPrep-Vaginal/Cervical ----- ------- Signed (signature on file) WILIAM Moura (ASCP) 08/22/23 1043 ? ----- ------- ? END OF REPORT ? 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
[2025-01-27 19:14] VITALS: BP 119/62; PULSE 66; RESP 16; TEMP 36.6; O2SAT 99
--- NOTE | 2025-01-27 19:14 | PC.NURSE ---
Took over care from KRISTIN chun pt resting in room awaiting disposition.
[2025-01-27] MEDS: Acetaminophen 325 MG TABLET 975 MG PO (20:55)
--- NOTE | 2025-01-27 21:03 | PC.NURSE ---
Medicated per mar, reviewed discharge instructions with pt, pt verbalized understanding. no sign of distress, pt ambulated with a steady gait upon discharge.
[2025-01-27 21:04] VITALS: BP 119/62; PULSE 66; RESP 16; TEMP 36.6; O2SAT 99
== END 2025-01-27 21:08 | disposition home or self-care (01) ==
PROVIDERS: Physician Assistant; Emergency Provider Emergency Medicine Emergency Medical Services; PCP Family Medicine
DX: J10.1 Influenza due to other identified influenza virus with other respiratory manifestations (principal); D64.9 Anemia, unspecified; R00.1 Bradycardia, unspecified; I49.8 Other specified cardiac arrhythmias; R10.2 Pelvic and perineal pain; Z98.84 Bariatric surgery status; Z79.899 Other long term (current) drug therapy
CPT/HCPCS: 0241U; 71045; 80053; 83690; 84484; 85025; 85610; 85730; 93005; 99283; 99285

== ENCOUNTER → 2025-01-27 16:06 | Outpatient (BNV) | payer MEDICAID, SELFPAY | PROVIDERS: Emergency Provider Emergency Medicine Emergency Medical Services; PCP Family Medicine; Visit Provider Internal Medicine Cardiovascular Disease | DX: R00.1 Bradycardia, unspecified (principal); R94.31 Abnormal electrocardiogram [ECG] [EKG]; R10.9 Unspecified abdominal pain | CPT/HCPCS: 93010 ==

== ENCOUNTER → 2025-01-27 16:06 | Outpatient (BNV) | payer MEDICAID, SELFPAY | PROVIDERS: PCP Family Medicine; Visit Provider Radiology Diagnostic Radiology | DX: R07.9 Chest pain, unspecified (principal) | CPT/HCPCS: 71045 ==

== ENCOUNTER 2025-03-27 15:03 | Outpatient (REF) | payer MEDICAID, SELFPAY ==
--- NOTE | ~2025-03-27 | MM_ITS ---
EXAMINATION: MM SCREENING DIGITAL BREAST TOMOSYNTHESIS, BILATERAL CLINICAL INFORMATION: Screening. Asymptomatic. COMPARISON: Mammography: Comparison is made with available priors TECHNIQUE: Digital breast mammography with tomosynthesis is performed in both the craniocaudal and mediolateral oblique views along with computer-aided detection (CAD). FINDINGS: There are scattered areas of fibroglandular density (ACR BI-RADS breast composition Category b). There are no significant masses, abnormal calcifications, or other abnormalities. MM/MM tomosynthesis screening BI IMPRESSION: No mammographic evidence of malignancy. ASSESSMENT: BI-RADS BI-RADS 1 - Negative RECOMMENDATION: Routine annual mammography screening. 1 year F/U This examination should not preclude the clinical evaluation of a suspicious palpable abnormality. This patient's information was entered into a reminder system with a target due date for their next mammogram. Electronically signed by: Leila Carter DO 03/31/2025 05:24 PM EDT
--- OUTSIDE RECORDS SUMMARY | 2025-03-27 17:44 | XMS_ITS | Encounter Summary ---
Author Organization [employer] Address [address] [place] [address] Care Team Providers Care Paramedical Aide Name Role Phone Rosibel Burden MD Primary Care Provider [phone] Mali Krishna Unavailable Encounter Details Date Type Department Care Team (Late st Contact Info) Description 11/26/2024 Orders Only [facility] [address], [place] [phone] Rosibel Burden MD [address] [place], [place] [phone] Social History Tobacco Use Types Packs/Day Years [...] as of this encounter Plan of Treatment Not on file documented as of this encounter Visit Diagnoses Not on filedocumented in this encounter Additional Health Concerns Assessment Noted Time PHQ-9 Depression Total Score: 0 11/08/19 24 3:02 PM EST documented as of this encounter Care Teams Paramedical Aide Relationship Specialty Start Date End Date Rosibel Burden MD [address] [place] [phone] PCP - General Family Medicine 10/23/18 Mali Krishna [address] [place] [address] 3rd [place] [address] Gastroenterology 11/26/24 documented as of this encounter
== END 2025-03-27 15:04 | disposition home or self-care (01) ==
LOC: HO.MAMMO 15:03
PROVIDERS: PCP Family Medicine; Visit Provider Family Medicine
DX: Z12.31 Encounter for screening mammogram for malignant neoplasm of breast (principal)
CPT/HCPCS: 77063; 77067

== ENCOUNTER → 2025-03-27 15:05 | Outpatient (BNV) | payer MEDICAID, SELFPAY | PROVIDERS: PCP Family Medicine; Visit Provider Internal Medicine | DX: Z12.31 Encounter for screening mammogram for malignant neoplasm of breast (principal) | CPT/HCPCS: 77063; 77067 ==